=== PATIENT | female | born 1970 | race Caucasian/White ===

== ENCOUNTER 2017-06-30 05:47 | Inpatient (IN) | payer OTHER, MEDICARE ==
[~2017-06-30] VITALS: Ht 149.9 cm; Wt 78.6 kg
[2017-06-30] VITALS (32 sets, daily range): BP systolic 87–148; BP diastolic 54–94; PULSE 49–88; RESP 0–24; Ht 149.9 cm; Wt 78.6 kg
[~2017-06-30 05:47] MED LIST: IBUP100T6
[2017-06-30 06:46] LABS: BASOPHILS % 0.4 % (0.0-2.0); EOSINOPHILS # 0.1 10^3/ul (0.0-0.5); EOSINOPHILS % 1.6 % (0.0-7.0); HEMATOCRIT 41.8 % (37.0-47.0); HEMOGLOBIN 14.4 g/dl (12.0-16.0); LYMPHOCYTES # 2.2 10^3/ul (0.8-2.9); LYMPHOCYTES % 32.2 % (15.0-51.0); MEAN CORPUSCULAR HEMOGLOBIN 32.7 pg (29.0-33.0); MEAN CORPUSCULAR HGB CONC 34.4 g/dl (32.0-37.0); MEAN PLATELET VOLUME 9.3 fl (7.4-10.4); MONOCYTE # 0.6 10^3/ul (0.3-0.9); MONOCYTES % 8.2 % (0.0-11.0); NEUTROPHIL # 3.9 10^3/ul (1.6-7.5); NEUTROPHILS % 57.5 % (39.0-77.0); PLATELET COUNT 287 10^3/UL (140-415); RED CELL DISTRIBUTION WIDTH 13.1 % (11.5-14.5); WHITE BLOOD COUNT 6.8 10^3/ul (4.8-10.8)
[2017-06-30] MEDS ORDERED: GELATIN SIZE 100 SPONGE ONE (06:49)
[2017-06-30] MEDS ORDERED: THROMBIN 5000 UNIT VIAL ONE (06:50)
[2017-06-30] MEDS ORDERED: POLYMYXIN/BACITRACIN 1L IRRIG ONE (06:50)
[2017-06-30 07:00] LABS: INR 0.96; PROTIME 12.8 Sec (12.2-14.2)
[2017-06-30 07:02] LABS: PARTIAL THROMBOPLASTIN TIME 29.3 Sec (25.0-35.0)
[2017-06-30 07:05] LABS: ALBUMIN 3.9 g/dl (3.3-4.9); ALBUMIN/GLOBULIN RATIO 0.95; BILIRUBIN,INDIRECT 0.5 mg/dl (0-1.1); BILIRUBIN,TOTAL 0.5 mg/dl (0.2-1.3)
--- NOTE | 2017-06-30 07:12 | RADRPT ---
PROCEDURE: XR Chest. CLINICAL INDICATION: Preoperative TECHNIQUE: Single frontal view of the chest was obtained COMPARISON: None FINDINGS: The heart and mediastinum are within normal limits. The lungs are clear. There is no pleural effusion or pneumothorax. RPTAT: AA IMPRESSION: No acute disease. .Cristobal Castellanos MD, Date Time Electronically viewed and signed by .Cristobal Castellanos MD, on 06/30/2017 07:10 .S/
[2017-06-30 07:18] LABS: CALCIUM 8.6 mg/dl (8.4-10.2); CREATININE 0.58 mg/dl (0.44-1.00); POTASSIUM 3.5 mmol/L (3.5-5.1)
[2017-06-30] MEDS ORDERED: CEFAZOLIN 1 GM INJ ONE (07:42)
[2017-06-30] MEDS ORDERED: LIDOCAINE 2% (SDV) 5 ML INJ ONE (07:42)
[2017-06-30] MEDS ORDERED: PROPOFOL 20 ML ONE (07:42)
[2017-06-30] MEDS ORDERED: ROCURONIUM 50 MG INJ ONE (07:42)
[2017-06-30] MEDS ORDERED: FENTAnyl 50 MCG/ML VIAL ONE (07:45)
[2017-06-30] MEDS ORDERED: MIDAZOLAM 1 MG/ML 2 ML INJ ONE (07:51)
--- NOTE | 2017-06-30 07:59 | HPN ---
Date/Time of Note Date/Time of Note DATE: 06/30/17 TIME: 07:55 Interval H&P Admission Note Pt. seen H&P reviewed: No system changes Preop Neurosurgery Note Pt seen and examined No significant change noted Extensive d/w patient about all available options including surgery vs no surgery. Overall risk/complications 3-5% overall thoroughly discussed. All questions answered and no guarantees given. Dispo: ICU post op ANDRA MORENO MD Jun 30, 2017 07:59
[2017-06-30] MEDS ORDERED: EPHEDrine SULFATE 50 MG/5 ML SYG IV PRN (08:00)
[2017-06-30] MEDS ORDERED: METOCLOPRAMIDE 10 MG INJ IV PRN (08:00)
[2017-06-30] MEDS ORDERED: FENTAnyl 50 MCG/ML VIAL IV PRN ×3 (08:00)
[2017-06-30] MEDS ORDERED: LABETALOL HCL 20MG INJ IV PRN (08:00)
[2017-06-30] MEDS ORDERED: KETOROLAC 30 MG INJ IV PRN (08:00)
[2017-06-30] MEDS ORDERED: MEPERIDINE 25 MG INJ IV PRN (08:00)
[2017-06-30] MEDS ORDERED: hydrALAzine 20 MG INJ IV PRN (08:00)
[2017-06-30] MEDS ORDERED: DIPHENHYDRAMINE 50 MG INJ IV PRN (08:00)
[2017-06-30] MEDS ORDERED: ONDANSETRON 4 MG INJ IV PRN ×2 (08:00→12:00)
[2017-06-30] MEDS ORDERED: HYDROmorphONE (0.2 MG/ML) 10ML SYG IV PRN ×2 (08:00)
[2017-06-30] MEDS ORDERED: POLYMYXIN/BACITRACIN 1L IRRIG IRR ONE (08:29)
[2017-06-30] MEDS ORDERED: DEXAMETHASONE 4 MG/ML 1 ML INJ ONE (08:47)
[2017-06-30] MEDS ORDERED: ONDANSETRON 4 MG INJ ONE (08:48)
[2017-06-30] MEDS ORDERED: SUGAMMADEX SODIUM 200 MG/2 ML VIAL IV ONE (09:08)
--- NOTE | 2017-06-30 09:18 | OPPN ---
Date/Time of Note Date/Time of Note DATE: 06/30/17 TIME: 09:16 Operative Report Preoperative Diagnosis Pseudomeningocele Postoperative Diagnosis same Operation/Procedure Performed L4-S1 right Pseudomeningocele repair Surgeon see signature line equal opportunity assistant RENETTA Mathews-BC, KETTLE GIRL Anesthesia: general Estimated blood loss: 10 - 50 ml's Transfusion Required none Specimen Wound Culture Aerobic / anaerobic Grafts/Implants none Complications none ANDRA MORENO MD Jun 30, 2017 09:18
[2017-06-30] MEDS ORDERED: NALOXONE (0.4 MG/ML) INJ IV PRN ×3 (09:30→12:00)
[2017-06-30] MEDS ORDERED: NACL 0.9% 3 ML SYG IV SCH (09:30)
[2017-06-30] MEDS ORDERED: HYDROCODONE/APAP (10/325) TAB PO PRN (09:30)
[2017-06-30] MEDS: HYDROmorphONE (0.2 MG/ML) 10ML SYG IV PRN ×2 (09:34→09:44)
[2017-06-30] MEDS ORDERED: CEFAZOLIN 1 GM/50 ML (PMX) 50 ML IVPB SCH (10:00)
[2017-06-30 10:40] LABS: ADD UMIC YES; UR ASCORBIC ACID NEGATIVE (NEGATIVE); UR BACTERIA FEW /HPF (NONE SEEN); UR BILIRUBIN (Dip) NEGATIVE (NEGATIVE); UR BLOOD (Dip) 2+ mg/dL (NEGATIVE); UR CLARITY CLEAR (CLEAR); UR COLOR YELLOW (YELLOW); UR GLUCOSE (Dip) NEGATIVE (NEGATIVE); UR KETONES (Dip) NEGATIVE (NEGATIVE); UR LEUKOCYTE ESTERASE (Dip) NEGATIVE Leu/ul (NEGATIVE); UR NITRITE (Dip) NEGATIVE (NEGATIVE); UR RBC 13 /HPF (0-5); UR SPECIFIC GRAVITY (Dip) 1.017 (1.003-1.030); UR SQUAMOUS EPITHELIAL CELL FEW /HPF (FEW); UR TOTAL PROTEIN (Dip) NEGATIVE (NEGATIVE); UR UROBILINOGEN (Dip) NEGATIVE (NEGATIVE)
[2017-06-30] MEDS ORDERED: HYDROmorphONE 0.2 MG/ML PCA IV SCH (11:30)
[2017-06-30] MEDS ORDERED: HYDROmorphONE 0.2 MG/ML PCA ONE (11:30)
[2017-06-30] MEDS: HYDROmorphONE 0.2 MG/ML PCA IV SCH ×2 (11:45→18:37)
[2017-06-30] MEDS ORDERED: ZOLPIDEM 5 MG TAB PO PRN (12:00)
[2017-06-30] MEDS ORDERED: HYDROmorphONE 0.5 MG/0.5 ML SYG IV PRN (12:00)
[2017-06-30] MEDS: NS + KCL 20 MEQ 1,000 ML IV SCH ×2 (12:25→22:33)
[2017-06-30] MEDS: CEFAZOLIN 1 GM/50 ML (PMX) 50 ML IVPB SCH ×2 (13:58→18:46)
--- NOTE | 2017-06-30 15:24 | HP ---
DATE OF ADMISSION: 06/30/2017 HISTORY OF PRESENT ILLNESS: The patient is a 46-year-old female who was evaluated by Dr. Kohler in s urgical consultation for pseudomeningocele. Patient with complaints of increasing back pain and hea dache. The patient was admitted and underwent L4-S1 right pseudomeningocele repair. Postoperativel y, the patient experienced moderate pain and patient is admitted to the intensive care unit for furt her management. The patient denies any chest pain, denies any shortness of breath. Complains of mi ld headache, back pain and itching. Denies fever or chills. PAST MEDICAL HISTORY: Positive for depression. PAST SURGICAL HISTORY: Status post lumbar surgeries x2 in the past, right foot surgery and left hip surgery. FAMILY HISTORY: Noncontributory. SOCIAL HISTORY: Patient lives at home with her family. The patient denies any tobacco use, denies any alcohol use, denies any illicit drug use. ALLERGIES: NO KNOWN ALLERGIES. HOME MEDICATIONS: Include Citalopram and ibuprofen. REVIEW OF SYSTEMS: A 12-point review of systems is negative unless what mentioned in the HPI. PHYSICAL ASSESSMENT: GENERAL: Well-developed, well-nourished female and currently is awake, alert. VITAL SIGNS: Temperature 98.2, pulse is 72, blood pressure 102/62, respiratory rate 17, oxygen satu ration 99% on 2 liters nasal cannula. HEENT: Head is atraumatic, normocephalic. Pupils equal, round, reactive to light and accommodation . Oral mucosa is pink and moist. NECK: Supple, no cervical lymphadenopathy, no thyromegaly. CHEST: Lungs clear bilaterally. No rhonchi, wheezes, rales noted. CARDIOVASCULAR: Normal S1, S2. No murmurs, gallops or rubs noted. ABDOMEN: Protuberant, soft, nondistended, nontender. Bowel sounds present. Lower back status post surgery with a dry, clean, intact dressing and a surgical drain. EXTREMITIES: No edema, clubbing, cyanosis. Pulses equal bilaterally 2+. SKIN: There is no rash or petechiae noted. NEUROLOGIC: Patient is awake, alert and oriented x4, moves all extremities. LABORATORY DATA: Today CBC: White blood cells 6.8, hemoglobin 14.4, hematocrit 41.8, platelets 287 . Chemistry: Sodium is 142, potassium 3.5, chloride 108, carbon dioxide 26, anion gap 12, BUN 14, creatinine 0.68, glucose 94, AST 48, ALT 77, alkaline is 105. PT is 12.8, INR is 0.96, a PTT is 29. 3. IMAGING: Chest x-ray with no acute disease. ASSESSMENT AND PLAN: 1. 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 Continue ICU monitoring wit h neuro checks. The patient has to be on complete bed rest for 48 hours. Continue postoperative an tibiotics and IV fluids. Patient is given Dilaudid RN UROLOGY p.r.n. for pain and Zofran p.r.n. for nausea . Continue Benadryl p.r.n. for itching. Sequential compression device for deep venous thrombosis p rophylaxis. Continue to follow up surgical recommendations. Further recommendations based on clini mario course. Plan of care discussed with Dr. Tabares. Dictated By: LACY KHAN VICE PRESIDENT RESEARCH for CYN TABARES MD SR/NTS Conf#: [id number] DID#: [id number]
[2017-06-30] MEDS: DIPHENHYDRAMINE 50 MG INJ IV PRN (21:34)
[2017-06-30] MEDS: KETOROLAC 30 MG INJ IV PRN (21:34)
[2017-07-01] VITALS (23 sets, daily range): BP systolic 86–129; BP diastolic 55–89; PULSE 46–65; RESP 10–21
[2017-07-01] MEDS: CEFAZOLIN 1 GM/50 ML (PMX) 50 ML IVPB SCH ×2 (00:22→06:24)
[2017-07-01] MEDS: NS + KCL 20 MEQ 1,000 ML IV SCH ×3 (05:30→20:07)
[2017-07-01 06:10] LABS: BASOPHILS % 0.2 % (0.0-2.0); HEMATOCRIT 37.5 % (37.0-47.0); HEMOGLOBIN 12.3 g/dl (12.0-16.0); LYMPHOCYTES # 1.4 10^3/ul (0.8-2.9); LYMPHOCYTES % 13.1 % (15.0-51.0); MEAN CORPUSCULAR HEMOGLOBIN 32.5 pg (29.0-33.0); MEAN CORPUSCULAR HGB CONC 32.8 g/dl (32.0-37.0); MEAN CORPUSCULAR VOLUME 98.9 fl (82.0-101.0); MEAN PLATELET VOLUME 9.3 fl (7.4-10.4); MONOCYTE # 0.6 10^3/ul (0.3-0.9); MONOCYTES % 5.7 % (0.0-11.0); NEUTROPHIL # 8.8 10^3/ul (1.6-7.5); NEUTROPHILS % 80.7 % (39.0-77.0); PLATELET COUNT 255 10^3/UL (140-415); RED BLOOD COUNT 3.79 10^6/ul (4.20-5.40); RED CELL DISTRIBUTION WIDTH 13.3 % (11.5-14.5); WHITE BLOOD COUNT 10.9 10^3/ul (4.8-10.8)
[2017-07-01] MEDS: KETOROLAC 30 MG INJ IV PRN ×2 (06:27→17:47)
[2017-07-01] MEDS: DIPHENHYDRAMINE 50 MG INJ IV PRN (06:28)
[2017-07-01 06:52] LABS: CALCIUM 7.6 mg/dl (8.4-10.2); CREATININE 0.52 mg/dl (0.44-1.00); POTASSIUM 3.7 mmol/L (3.5-5.1)
[2017-07-01] MEDS: ACETAMINOPHEN 1000MG/100ML IV 100 ML IVPB PRN ×2 (10:51→18:36)
--- NOTE | 2017-07-01 11:20 | PN ---
Date/Time of Note Date/Time of Note DATE: 07/01/17 TIME: 11:19 Assessment/Plan VTE Prophylaxis VTE Prophylaxis Intervention: SCD's Lines/Catheters IV Catheter Type (from Nrs): Peripheral IV Urinary Cath still in place: Yes Reason Cath still needed: other (indicate) (continue bedrest post op 48-72 hours) Assessment/Plan Assessment/Plan s/p Meningocele repair . POD #1 mild PINO Surgical site: CDI plan okay to downgrade bedrest x 48-72 hours scds IS x 10 Subjective 24 Hr Interval Summary Subjective hx not possible: other (mild pino) Exam/Review of Systems Vital Signs Vitals Vital Signs Date Time Temp Pulse Resp B/P Pulse Ox O2 Delivery O2 Flow Rate FiO2 07/01/17 09:00 62 18 97/62 99 Nasal Cannula 2.0 07/01/17 08:00 98.2 Intake and Output 06/30/17 06/30/17 07/01/17 15:00 23:00 07:00 Intake Total 1400 ml 580 ml 800 ml Output Total 255 ml 185 ml 2140 ml Balance 1145 ml 395 ml -1340 ml Exam Neurological: other (ms: AAOX4 CN: PERRL M: 5/5 strength Surgical site : CDI approximately 75 jyothi output) Results Result Diagram: 07/01/17 0555 07/01/17 0555 Results 24 hrs Laboratory Tests Test 07/01/17 05:54 07/01/17 05:55 Lab Scanned Report LAB White Blood Count 10.9 #H Red Blood Count 3.79 L Hemoglobin 12.3 Hematocrit 37.5 Mean Corpuscular Volume 98.9 Mean Corpuscular Hemoglobin 32.5 Mean Corpuscular Hemoglobin Concent 32.8 Red Cell Distribution Width 13.3 Platelet Count 255 Mean Platelet Volume 9.3 Neutrophils % 80.7 H Lymphocytes % 13.1 L Monocytes % 5.7 Eosinophils % 0.0 Basophils % 0.2 Nucleated Red Blood Cells % 0.0 Neutrophils # 8.8 H Lymphocytes # 1.4 Monocytes # 0.6 Eosinophils # 0.0 Basophils # 0.0 Nucleated Red Blood Cells # 0.0 Sodium Level 140 Potassium Level 3.7 Chloride Level 105 Carbon Dioxide Level 26 Anion Gap 13 Blood Urea Nitrogen 9 Creatinine 0.52 Glucose Level 103 Calcium Level 7.6 L Medications Medications Current Medications Naloxone HCl 0.2 mg 0.2 mg Q2M PRN IV RR 8 BREATHS/MIN OR LESS; Start at 09:30 Potassium Chloride/Sodium Chloride (NS-KCl 20 Meq) 1,000 ml @ 100 mls/hr Q10H IV Last administered on 06/30/17 22:33; Admin Dose 100 MLS/HR; Start at 09:30 Hydromorphone HCl (Dilaudid) 0.5 mg Q4H PRN IV PAIN; Start 06/30/17 at 09:30 Naloxone HCl (Narcan) 0.2 mg PRN PRN IV DECREASED REPIRATORY RATE; Start 06/30 at 12:00 Hydromorphone HCl (Dilaudid DIRECTOR ERP) Q4PCA IV Last administered on 06/30/17 18: 37; Admin Dose 6 MG; Start 06/30/17 at 12:00; Stop 07/03/17 at 06:00 Acetaminophen/ Hydrocodone Bitart ([place] (5/325)) 1 tab Q4H PRN PO PAIN LEVEL 1 -5; Start 06/30/17 at 12:00; Status Future Hold Acetaminophen/ Hydrocodone Bitart ([place] (5/325)) 2 tab Q4H PRN PO PAIN LEVEL 6 -10; Start 06/30/17 at 12:00; Status Future Hold Hydromorphone HCl (Dilaudid) 0.2 mg Q4H PRN IV PAIN LEVEL 1-5; Start 06/30/17 at 12:00 Hydromorphone HCl (Dilaudid) 0.4 mg Q4H PRN IV PAIN LEVEL 6-10; Start at 12:00 Ketorolac Tromethamine (Toradol) 30 mg Q6H PRN IV PAIN UNRELIEVED BY IV NARCOTIC Last administered on 07/01/17 06:27; Admin Dose 30 MG; Start at 12:00; Stop 07/03/17 at 11:59 Ondansetron HCl (Zofran Inj) 4 mg Q6H PRN IV NAUSEA AND/OR VOMITING; Start at 12:00 Diphenhydramine HCl (Benadryl) 25 mg Q6H PRN IV ITCHING Last administered on 06:28; Admin Dose 25 MG; Start 06/30/17 at 12:00 Miscellaneous Information 1. Discontinue DIRECTOR ERP... DIRECTOR ERP IV ; Start 06/30/17 at 12: 00 Miscellaneous Information 1. Discontinue DIRECTOR ERP... DIRECTOR ERP IV ; Start 06/30/17 at 12: 00 Acetaminophen (Ofirmev 1000mg/ 100ml Iv) 100 ml @ 400 mls/hr Q6H PRN IVPB HEADACHE Last administered on 07/01/17t 10:51; Admin Dose 400 MLS/HR; Start at 11:00 ANDRA MORENO MD Jul 01, 2017 11:20
--- NOTE | 2017-07-01 13:20 | OPPN ---
Date/Time of Note Date/Time of Note DATE: 07/01/17 TIME: 13:19 Operative Report Preoperative Diagnosis Cervical Myelopathy Postoperative Diagnosis same Operation/Procedure Performed ACDF C5-7 Surgeon see signature line assistant media buyer RIA Mathews, GENAROP-BC Anesthesia: general Estimated blood loss: 10 - 50 ml's Transfusion Required none Specimen C5-6 disc C6-7 disc Grafts/Implants none Complications none ANDRA MORENO MD Jul 01, 2017 13:20
--- NOTE | 2017-07-01 15:41 | PN ---
Date/Time of Note Date/Time of Note DATE: 07/01/17 TIME: 15:37 Assessment/Plan VTE Prophylaxis VTE Prophylaxis Intervention: SCD's Lines/Catheters IV Catheter Type (from Nrs): Peripheral IV Urinary Cath still in place: Yes Reason Cath still needed: urinary retention Assessment/Plan Chief Complaint/Hosp Course Patient complains of mild headache, denies any nausea vomiting, blood pressure is on the low side. 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 Continue ICU monitoring with neuro checks. Continue complete bed rest for another 24 hours. Continue postoperative antibiotics and IV fluids. Continue Dilaudid FIELD COIL WINDER p.r.n. for pain and Zofran p.r.n. for nausea. Further recommendations based on clinical course. Plan of care discussed with Dr. Tabares. Exam/Review of Systems Vital Signs Vitals Vital Signs Date Time Temp Pulse Resp B/P Pulse Ox O2 Delivery O2 Flow Rate FiO2 07/01/17 12:00 61 07/01/17 09:00 18 97/62 99 Nasal Cannula 2.0 07/01/17 08:00 98.2 Intake and Output 06/30/17 06/30/17 07/01/17 15:00 23:00 07:00 Intake Total 1400 ml 580 ml 800 ml Output Total 255 ml 185 ml 2140 ml Balance 1145 ml 395 ml -1340 ml Exam Constitutional: alert, oriented Neck: supple Respiratory: normal air movement Cardiovascular: nl pulses Gastrointestinal: non-tender, soft Musculoskeletal: other (Lower back status post surgery with a dry, clean, intact dressing and a surgical drain.) Extremities: normal pulses Results Result Diagram: 07/01/17 0555 07/01/17 0555 Results 24 hrs Laboratory Tests Test 07/01/17 05:54 07/01/17 05:55 Lab Scanned Report LAB White Blood Count 10.9 #H Red Blood Count 3.79 L Hemoglobin 12.3 Hematocrit 37.5 Mean Corpuscular Volume 98.9 Mean Corpuscular Hemoglobin 32.5 Mean Corpuscular Hemoglobin Concent 32.8 Red Cell Distribution Width 13.3 Platelet Count 255 Mean Platelet Volume 9.3 Neutrophils % 80.7 H Lymphocytes % 13.1 L Monocytes % 5.7 Eosinophils % 0.0 Basophils % 0.2 Nucleated Red Blood Cells % 0.0 Neutrophils # 8.8 H Lymphocytes # 1.4 Monocytes # 0.6 Eosinophils # 0.0 Basophils # 0.0 Nucleated Red Blood Cells # 0.0 Sodium Level 140 Potassium Level 3.7 Chloride Level 105 Carbon Dioxide Level 26 Anion Gap 13 Blood Urea Nitrogen 9 Creatinine 0.52 Glucose Level 103 Calcium Level 7.6 L Medications Medications Current Medications Naloxone HCl 0.2 mg 0.2 mg Q2M PRN IV RR 8 BREATHS/MIN OR LESS; Start at 09:30 Potassium Chloride/Sodium Chloride (NS-KCl 20 Meq) 1,000 ml @ 100 mls/hr Q10H IV Last administered on 06/30/17 22:33; Admin Dose 100 MLS/HR; Start at 09:30 Hydromorphone HCl (Dilaudid) 0.5 mg Q4H PRN IV PAIN; Start 06/30/17 at 09:30 Naloxone HCl (Narcan) 0.2 mg PRN PRN IV DECREASED REPIRATORY RATE; Start 06/30 at 12:00 Hydromorphone HCl (Dilaudid FIELD COIL WINDER) Q4PCA IV Last administered on 06/30/17 18: 37; Admin Dose 6 MG; Start 06/30/17 at 12:00; Stop 07/03/17 at 06:00 Acetaminophen/ Hydrocodone Bitart ([place] (5/325)) 1 tab Q4H PRN PO PAIN LEVEL 1 -5; Start 06/30/17 at 12:00; Status Future Hold Acetaminophen/ Hydrocodone Bitart ([place] (5/325)) 2 tab Q4H PRN PO PAIN LEVEL 6 -10; Start 06/30/17 at 12:00; Status Future Hold Hydromorphone HCl (Dilaudid) 0.2 mg Q4H PRN IV PAIN LEVEL 1-5; Start 06/30/17 at 12:00 Hydromorphone HCl (Dilaudid) 0.4 mg Q4H PRN IV PAIN LEVEL 6-10; Start at 12:00 Ketorolac Tromethamine (Toradol) 30 mg Q6H PRN IV PAIN UNRELIEVED BY IV NARCOTIC Last administered on 07/01/17 06:27; Admin Dose 30 MG; Start at 12:00; Stop 07/03/17 at 11:59 Ondansetron HCl (Zofran Inj) 4 mg Q6H PRN IV NAUSEA AND/OR VOMITING; Start at 12:00 Diphenhydramine HCl (Benadryl) 25 mg Q6H PRN IV ITCHING Last administered on 06:28; Admin Dose 25 MG; Start 06/30/17 at 12:00 Miscellaneous Information 1. Discontinue FIELD COIL WINDER... FIELD COIL WINDER IV ; Start 06/30/17 at 12: 00 Miscellaneous Information 1. Discontinue FIELD COIL WINDER... FIELD COIL WINDER IV ; Start 06/30/17 at 12: 00 Acetaminophen (Ofirmev 1000mg/ 100ml Iv) 100 ml @ 400 mls/hr Q6H PRN IVPB HEADACHE Last administered on 07/01/17 10:51; Admin Dose 400 MLS/HR; Start at 11:00 LACY KHAN Jul 01, 2017 15:41
[2017-07-01] MEDS: HYDROmorphONE 0.2 MG/ML PCA IV SCH (18:30)
[2017-07-02] VITALS (20 sets, daily range): BP systolic 101–160; BP diastolic 53–93; PULSE 44–66; RESP 10–19
[2017-07-02] MEDS: NS + KCL 20 MEQ 1,000 ML IV SCH ×2 (05:48→16:50)
[2017-07-02 06:12] LABS: EOSINOPHILS # 0.1 10^3/ul (0.0-0.5); EOSINOPHILS % 1.7 % (0.0-7.0); HEMOGLOBIN 12.8 g/dl (12.0-16.0); MEAN CORPUSCULAR HEMOGLOBIN 31.8 pg (29.0-33.0); RED BLOOD COUNT 4.03 10^6/ul (4.20-5.40)
[2017-07-02 06:18] LABS: BASOPHILS % 0.3 % (0.0-2.0); HEMATOCRIT 40.2 % (37.0-47.0); LYMPHOCYTES # 2.3 10^3/ul (0.8-2.9); LYMPHOCYTES % 35.4 % (15.0-51.0); MEAN CORPUSCULAR HGB CONC 31.8 g/dl (32.0-37.0); MEAN CORPUSCULAR VOLUME 99.8 fl (82.0-101.0); MEAN PLATELET VOLUME 9.8 fl (7.4-10.4); MONOCYTE # 0.5 10^3/ul (0.3-0.9); NEUTROPHIL # 3.7 10^3/ul (1.6-7.5); NEUTROPHILS % 55.4 % (39.0-77.0); PLATELET COUNT 242 10^3/UL (140-415); RED CELL DISTRIBUTION WIDTH 13.7 % (11.5-14.5); WHITE BLOOD COUNT 6.6 10^3/ul (4.8-10.8)
[2017-07-02 07:00] LABS: CALCIUM 7.5 mg/dl (8.4-10.2); CREATININE 0.58 mg/dl (0.44-1.00); POTASSIUM 3.9 mmol/L (3.5-5.1)
[2017-07-02] MEDS: KETOROLAC 30 MG INJ IV PRN ×2 (08:26→16:43)
[2017-07-02] MEDS: ACETAMINOPHEN 1000MG/100ML IV 100 ML IVPB PRN ×2 (10:07→17:20)
--- NOTE | 2017-07-02 12:14 | PN ---
Date/Time of Note Date/Time of Note DATE: 07/02/17 TIME: 12:08 Assessment/Plan VTE Prophylaxis VTE Prophylaxis Intervention: other Lines/Catheters IV Catheter Type (from Nrs): Peripheral IV Urinary Cath still in place: Yes Assessment/Plan Assessment/Plan - Pseudomeningocele - status post L4-S1 right pseudomeningocele repair. - per neuro sx - Continue ICU monitoring with neuro checks. - ok to transfer to tele per neuro sx Further recommendations based on clinical course. Plan of care discussed with Dr. Tabares. Subjective 24 Hr Interval Summary Free Text/Dictation Patient complains of mild headache, denies any chest pain, shortness of breath, nausea vomiting, pulse 62 - remains on supplement oxygen via [place] - Dw staff- ok to transfer tele per neurosx Constitutional: requiring O2 Respiratory: no complaints Cardiovascular: no complaints Gastrointestinal: no complaints Genitourinary: no complaints Musculoskeletal: no complaints Neurologic: headache Exam/Review of Systems Vital Signs Vitals Vital Signs Date Time Temp Pulse Resp B/P Pulse Ox O2 Delivery O2 Flow Rate FiO2 07/02/17 10:00 62 19 120/72 98 Nasal Cannula 2.0 07/02/17 08:00 98.2 07/02/17 05:33 27 Intake and Output 07/01/17 07/01/17 07/02/17 15:00 23:00 07:00 Intake Total 1580 ml 1090 ml 720 ml Output Total 1680 ml 1080 ml 790 ml Balance -100 ml 10 ml -70 ml Exam Constitutional: alert, well developed Respiratory: clear to auscultation, diminished breath sounds Gastrointestinal: non-tender, soft Musculoskeletal: nl extremities to inspection Extremities: normal pulses Neurological: nl mental status, nl speech Results Result Diagram: 07/02/1715 07/02/1715 Results 24 hrs Laboratory Tests Test 07/02/17 05:15 White Blood Count 6.6 # Red Blood Count 4.03 L Hemoglobin 12.8 Hematocrit 40.2 Mean Corpuscular Volume 99.8 Mean Corpuscular Hemoglobin 31.8 Mean Corpuscular Hemoglobin Concent 31.8 L Red Cell Distribution Width 13.7 Platelet Count 242 Mean Platelet Volume 9.8 Neutrophils % 55.4 Lymphocytes % 35.4 Monocytes % 7.0 Eosinophils % 1.7 Basophils % 0.3 Nucleated Red Blood Cells % 0.0 Neutrophils # 3.7 Lymphocytes # 2.3 Monocytes # 0.5 Eosinophils # 0.1 Basophils # 0.0 Nucleated Red Blood Cells # 0.0 Sodium Level 144 Potassium Level 3.9 Chloride Level 110 Carbon Dioxide Level 27 Anion Gap 11 Blood Urea Nitrogen 8 Creatinine 0.58 Glucose Level 78 Calcium Level 7.5 L Medications Medications Current Medications Naloxone HCl 0.2 mg 0.2 mg Q2M PRN IV RR 8 BREATHS/MIN OR LESS; Start at 09:30 Potassium Chloride/Sodium Chloride (NS-KCl 20 Meq) 1,000 ml @ 100 mls/hr Q10H IV Last administered on 07/02/17 05:48; Admin Dose 100 MLS/HR; Start at 09:30 Hydromorphone HCl (Dilaudid) 0.5 mg Q4H PRN IV PAIN; Start 06/30/17 at 09:30 Naloxone HCl (Narcan) 0.2 mg PRN PRN IV DECREASED REPIRATORY RATE; Start 06/30 at 12:00 Acetaminophen/ Hydrocodone Bitart ([place] (5/325)) 1 tab Q4H PRN PO PAIN LEVEL 1 -5; Start 06/30/17 at 12:00; Status Future hold Acetaminophen/ Hydrocodone Bitart ([place] (5/325)) 2 tab Q4H PRN PO PAIN LEVEL 6 -10; Start 06/30/17 at 12:00; Status Future hold Hydromorphone HCl (Dilaudid) 0.2 mg Q4H PRN IV PAIN LEVEL 1-5; Start 06/30/17 at 12:00 Hydromorphone HCl (Dilaudid) 0.4 mg Q4H PRN IV PAIN LEVEL 6-10; Start at 12:00 Ketorolac Tromethamine (Toradol) 30 mg Q6H PRN IV PAIN UNRELIEVED BY IV NARCOTIC Last administered on 07/02/17 08:26; Admin Dose 30 MG; Start at 12:00; Stop 07/03/17 at 11:59 Ondansetron HCl (Zofran Inj) 4 mg Q6H PRN IV NAUSEA AND/OR VOMITING Last administered on 07/01/17 21:07; Admin Dose 4 MG; Start 10/17/17 at 12:00 Diphenhydramine HCl (Benadryl) 25 mg Q6H PRN IV ITCHING Last administered on 06:28; Admin Dose 25 MG; Start 06/30/17 at 12:00 Miscellaneous Information 1. Discontinue SUPERVISOR BRIDGES AND BUILDINGS... SUPERVISOR BRIDGES AND BUILDINGS IV ; Start 06/30/17 at 12: 00 Miscellaneous Information 1. Discontinue SUPERVISOR BRIDGES AND BUILDINGS... SUPERVISOR BRIDGES AND BUILDINGS IV ; Start 06/30/17 at 12: 00 Acetaminophen (Ofirmev 1000mg/ 100ml Iv) 100 ml @ 400 mls/hr Q6H PRN IVPB HEADACHE Last administered on 07/02/17 10:07; Admin Dose 400 MLS/HR; Start at 11:00 Magnesium Hydroxide (Milk Of Mag) 30 ml DAILY PRN PO CONSTIPATION; Start 07/02 at 11:00 ISABELLA BRUSH Jul 02, 2017 12:14
[2017-07-02] MEDS: MAGNESIUM HYDROXIDE 30ML CUP PO PRN (15:02)
--- NOTE | 2017-07-02 17:00 | PN ---
Date/Time of Note Date/Time of Note DATE: 07/02/17 TIME: 16:59 Assessment/Plan VTE Prophylaxis VTE Prophylaxis Intervention: SCD's Lines/Catheters IV Catheter Type (from Nrs): Peripheral IV Urinary Cath still in place: Yes Reason Cath still needed: other (indicate) (bedrest x 72 hours ) Assessment/Plan Assessment/Plan s/p Meningocele repair . POD #2 less drainage from JYOTHI , approximately 10-15cc since this am. mild PINO n/v plan cont IVF until n/v improves prn zofran hold pt/ot for now cont jyothi drain scds is x 10 family updated Subjective 24 Hr Interval Summary Subjective hx not possible: other (S: s/p Meningocele repair . POD #2 ) Exam/Review of Systems Vital Signs Vitals Vital Signs Date Time Temp Pulse Resp B/P Pulse Ox O2 Delivery O2 Flow Rate FiO2 07/02/17 16:47 98.7 61 18 109/53 91 07/02/17 14:00 Room Air 07/02/17 11:00 2.0 07/02/17 05:33 27 Intake and Output 07/01/17 07/01/17 07/02/17 15:00 23:00 07:00 Intake Total 1580 ml 1090 ml 720 ml Output Total 1680 ml 1080 ml 790 ml Balance -100 ml 10 ml -70 ml Exam vss aaox4 perrl fc x 4 , no focal weakness surgical site: cdi JYOTHI output: approximately 10-15 cc outpt since am. Results Result Diagram: 07/02/17 0515 07/02/17 0515 Results 24 hrs Laboratory Tests Test 07/02/17 05:15 White Blood Count 6.6 # Red Blood Count 4.03 L Hemoglobin 12.8 Hematocrit 40.2 Mean Corpuscular Volume 99.8 Mean Corpuscular Hemoglobin 31.8 Mean Corpuscular Hemoglobin Concent 31.8 L Red Cell Distribution Width 13.7 Platelet Count 242 Mean Platelet Volume 9.8 Neutrophils % 55.4 Lymphocytes % 35.4 Monocytes % 7.0 Eosinophils % 1.7 Basophils % 0.3 Nucleated Red Blood Cells % 0.0 Neutrophils # 3.7 Lymphocytes # 2.3 Monocytes # 0.5 Eosinophils # 0.1 Basophils # 0.0 Nucleated Red Blood Cells # 0.0 Sodium Level 144 Potassium Level 3.9 Chloride Level 110 Carbon Dioxide Level 27 Anion Gap 11 Blood Urea Nitrogen 8 Creatinine 0.58 Glucose Level 78 Calcium Level 7.5 L Medications Medications Current Medications Naloxone HCl 0.2 mg 0.2 mg Q2M PRN IV RR 8 BREATHS/MIN OR LESS; Start at 09:30 Potassium Chloride/Sodium Chloride (NS-KCl 20 Meq) 1,000 ml @ 100 mls/hr Q10H IV Last administered on 07/02/17 05:48; Admin Dose 100 MLS/HR; Start at 09:30 Hydromorphone HCl (Dilaudid) 0.5 mg Q4H PRN IV PAIN; Start 06/30/17 at 09:30 Naloxone HCl (Narcan) 0.2 mg PRN PRN IV DECREASED REPIRATORY RATE; Start 06/30 at 12:00 Acetaminophen/ Hydrocodone Bitart ([place] (5/325)) 1 tab Q4H PRN PO PAIN LEVEL 1 -5; Start 06/30/17 at 12:00; Status Future hold Acetaminophen/ Hydrocodone Bitart ([place] (5/325)) 2 tab Q4H PRN PO PAIN LEVEL 6 -10; Start 06/30/17 at 12:00; Status Future hold Hydromorphone HCl (Dilaudid) 0.2 mg Q4H PRN IV PAIN LEVEL 1-5; Start 06/30/17 at 12:00 Hydromorphone HCl (Dilaudid) 0.4 mg Q4H PRN IV PAIN LEVEL 6-10; Start at 12:00 Ketorolac Tromethamine (Toradol) 30 mg Q6H PRN IV PAIN UNRELIEVED BY IV NARCOTIC Last administered on 07/02/17 08:26; Admin Dose 30 MG; Start at 12:00; Stop 07/03/17 at 11:59 Ondansetron HCl (Zofran Inj) 4 mg Q6H PRN IV NAUSEA AND/OR VOMITING Last administered on 07/01/17 21:07; Admin Dose 4 MG; Start 06/30/17 at 12:00 Diphenhydramine HCl (Benadryl) 25 mg Q6H PRN IV ITCHING Last administered on 06:28; Admin Dose 25 MG; Start 06/30/17 at 12:00 Miscellaneous Information 1. Discontinue ORDER TAKERS SUPERVISOR... ORDER TAKERS SUPERVISOR IV ; Start 06/30/17 at 12: 00 Miscellaneous Information 1. Discontinue ORDER TAKERS SUPERVISOR... ORDER TAKERS SUPERVISOR IV ; Start 06/30/17 at 12: 00 Acetaminophen (Ofirmev 1000mg/ 100ml Iv) 100 ml @ 400 mls/hr Q6H PRN IVPB HEADACHE Last administered on 07/02/17 10:07; Admin Dose 400 MLS/HR; Start at 11:00 Magnesium Hydroxide (Milk Of Mag) 30 ml DAILY PRN PO CONSTIPATION Last administered on 07/02/17 15:02; Admin Dose 30 ML; Start 07/02/17 at 11:00 LINA MÉNDEZ NP Jul 02, 2017 17:00
--- NOTE | 2017-07-02 18:28 | RADRPT ---
Vent Rate: 70 bpm RR Interval: 0 msec IA Interval: 164 msec QRS Duration: 70 msec QT Interval: 428 msec QTC Interval: 462 msec P-R-T [place]: 48 - 10 - 21 degrees Normal sinus rhythm Normal ECG Electronically Signed By: Noel Cha [id number]
[2017-07-02] MEDS: HYDROmorphONE 0.5 MG/0.5 ML SYG IV PRN (23:49)
[2017-07-03] VITALS (14 sets, daily range): BP systolic 87–121; BP diastolic 50–61; PULSE 53–72; RESP 17–20
[2017-07-03] MEDS: NS + KCL 20 MEQ 1,000 ML IV SCH ×2 (04:15→14:28)
[2017-07-03] MEDS: HYDROmorphONE 0.5 MG/0.5 ML SYG IV PRN ×5 (05:16→19:34)
[2017-07-03 06:15] LABS: BASOPHILS % 0.3 % (0.0-2.0); EOSINOPHILS # 0.2 10^3/ul (0.0-0.5); EOSINOPHILS % 2.6 % (0.0-7.0); HEMATOCRIT 43.9 % (37.0-47.0); HEMOGLOBIN 14.1 g/dl (12.0-16.0); LYMPHOCYTES # 2.6 10^3/ul (0.8-2.9); LYMPHOCYTES % 34.5 % (15.0-51.0); MEAN CORPUSCULAR HEMOGLOBIN 31.7 pg (29.0-33.0); MEAN CORPUSCULAR HGB CONC 32.1 g/dl (32.0-37.0); MEAN CORPUSCULAR VOLUME 98.7 fl (82.0-101.0); MEAN PLATELET VOLUME 9.6 fl (7.4-10.4); MONOCYTE # 0.6 10^3/ul (0.3-0.9); MONOCYTES % 8.2 % (0.0-11.0); PLATELET COUNT 263 10^3/UL (140-415); RED BLOOD COUNT 4.45 10^6/ul (4.20-5.40); RED CELL DISTRIBUTION WIDTH 13.8 % (11.5-14.5); WHITE BLOOD COUNT 7.4 10^3/ul (4.8-10.8)
[2017-07-03] MEDS: HYDROCODONE/APAP (5/325) TAB PO PRN ×4 (06:22→20:58)
[2017-07-03 07:12] LABS: CALCIUM 8.1 mg/dl (8.4-10.2); CREATININE 0.55 mg/dl (0.44-1.00)
--- NOTE | 2017-07-03 14:54 | PN ---
Date/Time of Note Date/Time of Note DATE: 07/03/17 TIME: 14:49 Assessment/Plan VTE Prophylaxis VTE Prophylaxis Intervention: SCD's Lines/Catheters IV Catheter Type (from Nrs): Saline Lock Urinary Cath still in place: Yes Reason Cath still needed: urinary retention Assessment/Plan Chief Complaint/Hosp Course No acute events overnight, pain is well controlled, blood pressure is on the low side. 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 Continue ICU monitoring with neuro checks. Continue postoperative antibiotics and IV fluids. Continue [place] and Dilaudid as needed for pain and Zofran p.r.n. for nausea. Further recommendations based on clinical course. Plan of care discussed with Dr. Tabares. Problems: Exam/Review of Systems Vital Signs Vitals Vital Signs Date Time Temp Pulse Resp B/P Pulse Ox O2 Delivery O2 Flow Rate FiO2 07/03/17 12:04 72 07/03/17 11:41 99.2 17 98/54 93 07/02/17 16:00 Nasal Cannula 2.0 07/02/17 05:33 27 Intake and Output 07/02/17 07/02/17 07/03/17 15:00 23:00 07:00 Intake Total 1140 ml 700 ml 250 ml Output Total 300 ml 1012 ml 5 ml Balance 840 ml -312 ml 245 ml Exam Constitutional: alert, oriented Neck: supple Respiratory: normal air movement Cardiovascular: nl pulses Gastrointestinal: non-tender, soft Musculoskeletal: other (Lower back status post surgery with a dry, clean, intact dressing and a surgical drain.) Extremities: normal pulses Results Result Diagram: 07/03/17 0523 07/03/17522 Results 24 hrs Laboratory Tests Test 07/03/17 05:23 White Blood Count 7.4 Red Blood Count 4.45 Hemoglobin 14.1 Hematocrit 43.9 Mean Corpuscular Volume 98.7 Mean Corpuscular Hemoglobin 31.7 Mean Corpuscular Hemoglobin Concent 32.1 Red Cell Distribution Width 13.8 Platelet Count 263 Mean Platelet Volume 9.6 Neutrophils % 54.0 Lymphocytes % 34.5 Monocytes % 8.2 Eosinophils % 2.6 Basophils % 0.3 Nucleated Red Blood Cells % 0.0 Neutrophils # 4.0 Lymphocytes # 2.6 Monocytes # 0.6 Eosinophils # 0.2 Basophils # 0.0 Nucleated Red Blood Cells # 0.0 Sodium Level 144 Potassium Level 4.0 Chloride Level 110 Carbon Dioxide Level 28 Anion Gap 10 Blood Urea Nitrogen 8 Creatinine 0.55 Glucose Level 80 Calcium Level 8.1 L Medications Medications Current Medications Naloxone HCl 0.2 mg 0.2 mg Q2M PRN IV RR 8 BREATHS/MIN OR LESS; Start at 09:30 Potassium Chloride/Sodium Chloride (NS-KCl 20 Meq) 1,000 ml @ 100 mls/hr Q10H IV Last administered on 07/03/17 14:28; Admin Dose 100 MLS/HR; Start at 09:30 Hydromorphone HCl (Dilaudid) 0.5 mg Q4H PRN IV PAIN Last administered on 14:27; Admin Dose 0.5 MG; Start 06/30/17 at 09:30 Naloxone HCl (Narcan) 0.2 mg PRN PRN IV DECREASED REPIRATORY RATE; Start 06/30 at 12:00 Acetaminophen/ Hydrocodone Bitart ([place] (5/325)) 1 tab Q4H PRN PO PAIN LEVEL 1 -5 Last administered on 07/03/17 06:22; Admin Dose 1 TAB; Start 06/30/17 at 12:00; Status Future hold Acetaminophen/ Hydrocodone Bitart ([place] (5/325)) 2 tab Q4H PRN PO PAIN LEVEL 6 -10 Last administered on 07/03/17 11:26; Admin Dose 2 TAB; Start 06/30/17 at 12:00; Status Future hold Hydromorphone HCl (Dilaudid) 0.2 mg Q4H PRN IV PAIN LEVEL 1-5 Last administered on 07/03/17 10:26; Admin Dose 0.2 MG; Start 06/30/17 at 12:00 Hydromorphone HCl (Dilaudid) 0.4 mg Q4H PRN IV PAIN LEVEL 6-10; Start at 12:00 Ondansetron HCl (Zofran Inj) 4 mg Q6H PRN IV NAUSEA AND/OR VOMITING Last administered on 07/01/17 21:07; Admin Dose 4 MG; Start 06/30/17 at 12:00 Diphenhydramine HCl (Benadryl) 25 mg Q6H PRN IV ITCHING Last administered on 06:28; Admin Dose 25 MG; Start 06/30/17 at 12:00 Miscellaneous Information 1. Discontinue TOLL MECHANIC... TOLL MECHANIC IV ; Start 06/30/17 at 12: 00 Miscellaneous Information 1. Discontinue TOLL MECHANIC... TOLL MECHANIC IV ; Start 06/30/17 at 12: 00 Acetaminophen (Ofirmev 1000mg/ 100ml Iv) 100 ml @ 400 mls/hr Q6H PRN IVPB HEADACHE Last administered on 07/02/17 17:20; Admin Dose 400 MLS/HR; Start at 11:00 Magnesium Hydroxide (Milk Of Mag) 30 ml DAILY PRN PO CONSTIPATION Last administered on 07/02/17 15:02; Admin Dose 30 ML; Start 07/02/17 at 11:00 LACY KHAN Jul 03, 2017 14:54
--- NOTE | 2017-07-03 14:57 | PN ---
Date/Time of Note Date/Time of Note DATE: 07/03/17 TIME: 14:54 Assessment/Plan VTE Prophylaxis VTE Prophylaxis Intervention: SCD's Lines/Catheters IV Catheter Type (from Nrs): Saline Lock Central line still needed: No Urinary Cath still in place: Yes Reason Cath still needed: other (indicate) (bedrest) Assessment/Plan Assessment/Plan s/p meningocele repair. very minimal drainage from JYOTHI HAs improving LE strength stable and no numbness/tingling plan cont supportive care pt/ot on HOLD possible DC jyothi drain in am cont bilat SCDs cont bedrest Subjective 24 Hr Interval Summary Subjective hx not possible: pt critical (new symptoms ), other (S: Less drainage from JYOTHI drain ) Exam/Review of Systems Vital Signs Vitals Vital Signs Date Time Temp Pulse Resp B/P Pulse Ox O2 Delivery O2 Flow Rate FiO2 07/03/17 12:04 72 07/03/17 11:41 99.2 17 98/54 93 07/02/17 16:00 Nasal Cannula 2.0 07/02/17 05:33 27 Intake and Output 07/02/17 07/02/17 07/03/17 15:00 23:00 07:00 Intake Total 1140 ml 700 ml 250 ml Output Total 300 ml 1012 ml 5 ml Balance 840 ml -312 ml 245 ml Exam Constitutional: alert, other (mild PINO) Head: normocephalic Neurological: IMPORT COORDINATOR II-XII intact, nl mental status, nl speech, nl strength Results Result Diagram: 07/03/1752207/03/1723 Results 24 hrs Laboratory Tests Test 07/03/17 05:23 White Blood Count 7.4 Red Blood Count 4.45 Hemoglobin 14.1 Hematocrit 43.9 Mean Corpuscular Volume 98.7 Mean Corpuscular Hemoglobin 31.7 Mean Corpuscular Hemoglobin Concent 32.1 Red Cell Distribution Width 13.8 Platelet Count 263 Mean Platelet Volume 9.6 Neutrophils % 54.0 Lymphocytes % 34.5 Monocytes % 8.2 Eosinophils % 2.6 Basophils % 0.3 Nucleated Red Blood Cells % 0.0 Neutrophils # 4.0 Lymphocytes # 2.6 Monocytes # 0.6 Eosinophils # 0.2 Basophils # 0.0 Nucleated Red Blood Cells # 0.0 Sodium Level 144 Potassium Level 4.0 Chloride Level 110 Carbon Dioxide Level 28 Anion Gap 10 Blood Urea Nitrogen 8 Creatinine 0.55 Glucose Level 80 Calcium Level 8.1 L Medications Medications Current Medications Naloxone HCl 0.2 mg 0.2 mg Q2M PRN IV RR 8 BREATHS/MIN OR LESS; Start at 09:30 Potassium Chloride/Sodium Chloride (NS-KCl 20 Meq) 1,000 ml @ 100 mls/hr Q10H IV Last administered on 07/03/17 14:28; Admin Dose 100 MLS/HR; Start at 09:30 Hydromorphone HCl (Dilaudid) 0.5 mg Q4H PRN IV PAIN Last administered on 14:27; Admin Dose 0.5 MG; Start 06/30/17 at 09:30 Naloxone HCl (Narcan) 0.2 mg PRN PRN IV DECREASED REPIRATORY RATE; Start 06/30 at 12:00 Acetaminophen/ Hydrocodone Bitart ([place] (5/325)) 1 tab Q4H PRN PO PAIN LEVEL 1 -5 Last administered on 07/03/17 06:22; Admin Dose 1 TAB; Start 06/30/17 at 12:00; Status Future hold Acetaminophen/ Hydrocodone Bitart ([place] (5/325)) 2 tab Q4H PRN PO PAIN LEVEL 6 -10 Last administered on 07/03/17 11:26; Admin Dose 2 TAB; Start 06/30/17 at 12:00; Status Future hold Hydromorphone HCl (Dilaudid) 0.2 mg Q4H PRN IV PAIN LEVEL 1-5 Last administered on 07/03/17 10:26; Admin Dose 0.2 MG; Start 06/30/17 at 12:00 Hydromorphone HCl (Dilaudid) 0.4 mg Q4H PRN IV PAIN LEVEL 6-10; Start at 12:00 Ondansetron HCl (Zofran Inj) 4 mg Q6H PRN IV NAUSEA AND/OR VOMITING Last administered on 07/01/17 21:07; Admin Dose 4 MG; Start 06/30/17 at 12:00 Diphenhydramine HCl (Benadryl) 25 mg Q6H PRN IV ITCHING Last administered on 06:28; Admin Dose 25 MG; Start 06/30/17 at 12:00 Miscellaneous Information 1. Discontinue ROOM ATTENDANT... ROOM ATTENDANT IV ; Start 06/30/17 at 12: 00 Miscellaneous Information 1. Discontinue ROOM ATTENDANT... ROOM ATTENDANT IV ; Start 06/30/17 at 12: 00 Acetaminophen (Ofirmev 1000mg/ 100ml Iv) 100 ml @ 400 mls/hr Q6H PRN IVPB HEADACHE Last administered on 07/02/17 17:20; Admin Dose 400 MLS/HR; Start at 11:00 Magnesium Hydroxide (Milk Of Mag) 30 ml DAILY PRN PO CONSTIPATION Last administered on 07/02/17 15:02; Admin Dose 30 ML; Start 07/02/17 at 11:00 ANDRA MORENO MD Jul 03, 2017 14:57
[2017-07-04] VITALS (11 sets, daily range): BP systolic 86–115; BP diastolic 53–60; PULSE 50–61; RESP 16–19
[2017-07-04] MEDS: HYDROmorphONE 0.5 MG/0.5 ML SYG IV PRN ×5 (00:21→23:06)
[2017-07-04] MEDS: NS + KCL 20 MEQ 1,000 ML IV SCH ×3 (01:06→23:08)
[2017-07-04] MEDS: HYDROCODONE/APAP (5/325) TAB PO PRN ×4 (02:05→20:14)
[2017-07-04 07:25] LABS: BASOPHILS % 0.5 % (0.0-2.0); EOSINOPHILS # 0.3 10^3/ul (0.0-0.5); EOSINOPHILS % 4.3 % (0.0-7.0); HEMATOCRIT 43.2 % (37.0-47.0); HEMOGLOBIN 14.3 g/dl (12.0-16.0); LYMPHOCYTES # 2.3 10^3/ul (0.8-2.9); LYMPHOCYTES % 31.1 % (15.0-51.0); MEAN CORPUSCULAR HEMOGLOBIN 32.4 pg (29.0-33.0); MEAN CORPUSCULAR HGB CONC 33.1 g/dl (32.0-37.0); MEAN PLATELET VOLUME 9.3 fl (7.4-10.4); MONOCYTE # 0.6 10^3/ul (0.3-0.9); MONOCYTES % 7.4 % (0.0-11.0); NEUTROPHIL # 4.2 10^3/ul (1.6-7.5); NEUTROPHILS % 56.6 % (39.0-77.0); PLATELET COUNT 285 10^3/UL (140-415); RED BLOOD COUNT 4.41 10^6/ul (4.20-5.40); RED CELL DISTRIBUTION WIDTH 13.4 % (11.5-14.5); WHITE BLOOD COUNT 7.5 10^3/ul (4.8-10.8)
[2017-07-04 08:04] LABS: CALCIUM 8.2 mg/dl (8.4-10.2); CREATININE 0.56 mg/dl (0.44-1.00); POTASSIUM 4.2 mmol/L (3.5-5.1)
[2017-07-04] MEDS ORDERED: FLUCONAZOLE 200 MG TAB PO ONE (11:00)
[2017-07-04] MEDS ORDERED: CEFTRIAXONE 1 GM/50 ML (PMX) 50 ML IVPB SCH (11:00)
[2017-07-04] MEDS: CEFTRIAXONE 1 GM/50 ML (PMX) 50 ML IVPB SCH (11:05)
[2017-07-04] MEDS: MAGNESIUM HYDROXIDE 30ML CUP PO PRN (12:32)
[2017-07-04 13:06] LABS: ADD UMIC YES; UR ASCORBIC ACID NEGATIVE (NEGATIVE); UR BILIRUBIN (Dip) NEGATIVE (NEGATIVE); UR BLOOD (Dip) 1+ mg/dL (NEGATIVE); UR BUDDING YEAST FEW /HPF (NONE SEEN); UR CLARITY CLEAR (CLEAR); UR COLOR STRAW (YELLOW); UR GLUCOSE (Dip) NEGATIVE (NEGATIVE); UR KETONES (Dip) NEGATIVE (NEGATIVE); UR LEUKOCYTE ESTERASE (Dip) NEGATIVE Leu/ul (NEGATIVE); UR NITRITE (Dip) NEGATIVE (NEGATIVE); UR RBC 1 /HPF (0-5); UR SPECIFIC GRAVITY (Dip) 1.008 (1.003-1.030); UR TOTAL PROTEIN (Dip) NEGATIVE (NEGATIVE); UR UROBILINOGEN (Dip) NEGATIVE (NEGATIVE)
--- NOTE | 2017-07-04 14:03 | PN ---
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 - per neurosx - Continue [place] and Dilaudid as needed for pain and Zofran p.r.n. for nausea. - Sinus Bradycardia, patient is asymptomatic - cont on tele - will get cardiology consult if patient is symptomatic Further recommendations based on clinical course. Plan of care discussed with Dr. Tabares. Subjective 24 Hr Interval Summary Free Text/Dictation Urine is positive for yeast- got Diflucan 200mg PO X1 today, cont on Rocephin, afebrile, dw staff ENT: no complaints Respiratory: no complaints Cardiovascular: no complaints Gastrointestinal: no complaints Musculoskeletal: back pain Exam/Review of Systems Vital Signs Vitals Vital Signs Date Time Temp Pulse Resp B/P Pulse Ox O2 Delivery O2 Flow Rate FiO2 07/04/17 12:06 61 07/04/17 11:59 98.2 16 96/53 94 07/02/17 16:00 Nasal Cannula 2.0 07/02/17 05:33 27 Intake and Output 07/03/17 07/03/17 07/04/17 15:00 23:00 07:00 Intake Total 1000 ml 760 ml 950 ml Output Total 2200 ml 1255 ml Balance 1000 ml -1440 ml -305 ml Exam Constitutional: alert, well developed Respiratory: diminished breath sounds, normal air movement Cardiovascular: other (s1s2), regular rate and rhythm Gastrointestinal: non-tender, soft Musculoskeletal: nl extremities to inspection Extremities: normal pulses Neurological: nl mental status Results Result Diagram: 07/04/17 0642 07/04/17 0638 Results 24 hrs Laboratory Tests Test 07/04/17 06:38 07/04/17 06:42 07/04/17 11:00 Sodium Level 142 Potassium Level 4.2 Chloride Level 109 Carbon Dioxide Level 27 Anion Gap 10 Blood Urea Nitrogen 8 Creatinine 0.56 Glucose Level 93 Calcium Level 8.2 L White Blood Count 7.5 Red Blood Count 4.41 Hemoglobin 14.3 Hematocrit 43.2 Mean Corpuscular Volume 98.0 Mean Corpuscular Hemoglobin 32.4 Mean Corpuscular Hemoglobin Concent 33.1 Red Cell Distribution Width 13.4 Platelet Count 285 Mean Platelet Volume 9.3 Neutrophils % 56.6 Lymphocytes % 31.1 Monocytes % 7.4 Eosinophils % 4.3 Basophils % 0.5 Nucleated Red Blood Cells % 0.0 Neutrophils # 4.2 Lymphocytes # 2.3 Monocytes # 0.6 Eosinophils # 0.3 Basophils # 0.0 Nucleated Red Blood Cells # 0.0 Urine Color STRAW Urine Clarity CLEAR Urine pH 8.0 Urine Specific [place] 1.008 Urine Ketones NEGATIVE Urine Nitrite NEGATIVE Urine Bilirubin NEGATIVE Urine Urobilinogen NEGATIVE Urine Leukocyte Esterase NEGATIVE Urine Microscopic RBC 1 Urine Microscopic WBC 1 Urine Yeast (Budding) FEW A Urine Hemoglobin 1+ H Urine Glucose NEGATIVE Urine Total Protein NEGATIVE Medications Medications Current Medications Naloxone HCl 0.2 mg 0.2 mg Q2M PRN IV RR 8 BREATHS/MIN OR LESS; Start at 09:30 Potassium Chloride/Sodium Chloride (NS-KCl 20 Meq) 1,000 ml @ 100 mls/hr Q10H IV Last administered on 07/04/17 12:28; Admin Dose 100 MLS/HR; Start at 09:30 Hydromorphone HCl (Dilaudid) 0.5 mg Q4H PRN IV PAIN Last administered on 11:04; Admin Dose 0.5 MG; Start 06/30/17 at 09:30 Naloxone HCl (Narcan) 0.2 mg PRN PRN IV DECREASED REPIRATORY RATE; Start 06/30 at 12:00 Acetaminophen/ Hydrocodone Bitart ([place] (5/325)) 1 tab Q4H PRN PO PAIN LEVEL 1 -5 Last administered on 07/04/17 07:24; Admin Dose 1 TAB; Start 06/30/17 at 12:00; Status Future hold Acetaminophen/ Hydrocodone Bitart ([place] (5/325)) 2 tab Q4H PRN PO PAIN LEVEL 6 -10 Last administered on 07/04/17 12:27; Admin Dose 2 TAB; Start 06/30/17 at 12:00; Status Future hold Hydromorphone HCl (Dilaudid) 0.2 mg Q4H PRN IV PAIN LEVEL 1-5 Last administered on 07/03/17 19:34; Admin Dose 0.2 MG; Start 06/30/17 at 12:00 Hydromorphone HCl (Dilaudid) 0.4 mg Q4H PRN IV PAIN LEVEL 6-10; Start at 12:00 Ondansetron HCl (Zofran Inj) 4 mg Q6H PRN IV NAUSEA AND/OR VOMITING Last administered on 07/01/17 21:07; Admin Dose 4 MG; Start 06/30/17 at 12:00 Diphenhydramine HCl (Benadryl) 25 mg Q6H PRN IV ITCHING Last administered on 06:28; Admin Dose 25 MG; Start 06/30/17 at 12:00 Miscellaneous Information 1. Discontinue PARKING RAMP ATTENDANT... PARKING RAMP ATTENDANT IV ; Start 06/30/17 at 12: 00 Miscellaneous Information 1. Discontinue PARKING RAMP ATTENDANT... PARKING RAMP ATTENDANT IV ; Start 06/30/17 at 12: 00 Acetaminophen (Ofirmev 1000mg/ 100ml Iv) 100 ml @ 400 mls/hr Q6H PRN IVPB HEADACHE Last administered on 07/02/17 17:20; Admin Dose 400 MLS/HR; Start at 11:00 Magnesium Hydroxide 30 ml 30 ml DAILY PRN PO CONSTIPATION Last administered on 07/04/17 12:32; Admin Dose 30 ML; Start 07/02/17 at 11:00 Ceftriaxone Sodium (Rocephin) 50 ml @ 100 mls/hr Q24H IVPB Last administered on 07/04/17 11:05; Admin Dose 100 MLS/HR; Start 07/04/17 at 11:00 ISABELLA BRUSH Jul 04, 2017 13:59
--- NOTE | 2017-07-04 16:50 | PN ---
Date/Time of Note Date/Time of Note DATE: 07/04/17 TIME: 16:49 Assessment/Plan VTE Prophylaxis VTE Prophylaxis Intervention: SCD's Lines/Catheters IV Catheter Type (from Nrs): Peripheral IV Urinary Cath still in place: Yes Reason Cath still needed: other (indicate) Assessment/Plan Chief Complaint/Hosp Course OOB in am, PT/OT Problems: Subjective 24 Hr Interval Summary Free Text/Dictation without complaints, no CSF leakage Exam/Review of Systems Vital Signs Vitals Vital Signs Date Time Temp Pulse Resp B/P Pulse Ox O2 Delivery O2 Flow Rate FiO2 07/04/17 15:19 98.2 63 16 86/57 95 07/02/17 16:00 Nasal Cannula 2.0 07/02/17 05:33 27 Intake and Output 07/03/17 07/03/17 07/04/17 15:00 23:00 07:00 Intake Total 1000 ml 760 ml 950 ml Output Total 2200 ml 1255 ml Balance 1000 ml -1440 ml -305 ml Exam Motor and sensory exams unchanged Results Result Diagram: 07/04/17 0642 07/04/17 0638 Results 24 hrs Laboratory Tests Test 07/04/17 06:38 07/04/17 06:42 07/04/17 11:00 Sodium Level 142 Potassium Level 4.2 Chloride Level 109 Carbon Dioxide Level 27 Anion Gap 10 Blood Urea Nitrogen 8 Creatinine 0.56 Glucose Level 93 Calcium Level 8.2 L White Blood Count 7.5 Red Blood Count 4.41 Hemoglobin 14.3 Hematocrit 43.2 Mean Corpuscular Volume 98.0 Mean Corpuscular Hemoglobin 32.4 Mean Corpuscular Hemoglobin Concent 33.1 Red Cell Distribution Width 13.4 Platelet Count 285 Mean Platelet Volume 9.3 Neutrophils % 56.6 Lymphocytes % 31.1 Monocytes % 7.4 Eosinophils % 4.3 Basophils % 0.5 Nucleated Red Blood Cells % 0.0 Neutrophils # 4.2 Lymphocytes # 2.3 Monocytes # 0.6 Eosinophils # 0.3 Basophils # 0.0 Nucleated Red Blood Cells # 0.0 Urine Color STRAW Urine Clarity CLEAR Urine pH 8.0 Urine Specific [place] 1.008 Urine Ketones NEGATIVE Urine Nitrite NEGATIVE Urine Bilirubin NEGATIVE Urine Urobilinogen NEGATIVE Urine Leukocyte Esterase NEGATIVE Urine Microscopic RBC 1 Urine Microscopic WBC 1 Urine Yeast (Budding) FEW A Urine Hemoglobin 1+ H Urine Glucose NEGATIVE Urine Total Protein NEGATIVE Medications Medications Current Medications Naloxone HCl 0.2 mg 0.2 mg Q2M PRN IV RR 8 BREATHS/MIN OR LESS; Start at 09:30 Potassium Chloride/Sodium Chloride (NS-KCl 20 Meq) 1,000 ml @ 100 mls/hr Q10H IV Last administered on 07/04/17 12:28; Admin Dose 100 MLS/HR; Start at 09:30 Hydromorphone HCl (Dilaudid) 0.5 mg Q4H PRN IV PAIN Last administered on 11:04; Admin Dose 0.5 MG; Start 06/30/17 at 09:30 Naloxone HCl (Narcan) 0.2 mg PRN PRN IV DECREASED REPIRATORY RATE; Start 06/30 at 12:00 Acetaminophen/ Hydrocodone Bitart ([place] (5/325)) 1 tab Q4H PRN PO PAIN LEVEL 1 -5 Last administered on 07/04/17 07:24; Admin Dose 1 TAB; Start 06/30/17 at 12:00; Status Future hold Acetaminophen/ Hydrocodone Bitart ([place] (5/325)) 2 tab Q4H PRN PO PAIN LEVEL 6 -10 Last administered on 07/04/17 12:27; Admin Dose 2 TAB; Start 06/30/17 at 12:00; Status Future hold Hydromorphone HCl (Dilaudid) 0.2 mg Q4H PRN IV PAIN LEVEL 1-5 Last administered on 07/03/17 19:34; Admin Dose 0.2 MG; Start 06/30/17 at 12:00 Hydromorphone HCl (Dilaudid) 0.4 mg Q4H PRN IV PAIN LEVEL 6-10; Start at 12:00 Ondansetron HCl (Zofran Inj) 4 mg Q6H PRN IV NAUSEA AND/OR VOMITING Last administered on 07/01/17 21:07; Admin Dose 4 MG; Start 06/30/17 at 12:00 Diphenhydramine HCl (Benadryl) 25 mg Q6H PRN IV ITCHING Last administered on 06:28; Admin Dose 25 MG; Start 06/30/17 at 12:00 Miscellaneous Information 1. Discontinue CHECKROOM ATTENDANT... CHECKROOM ATTENDANT IV ; Start 06/30/17 at 12: 00 Miscellaneous Information 1. Discontinue CHECKROOM ATTENDANT... CHECKROOM ATTENDANT IV ; Start 06/30/17 at 12: 00 Acetaminophen (Ofirmev 1000mg/ 100ml Iv) 100 ml @ 400 mls/hr Q6H PRN IVPB HEADACHE Last administered on 07/02/17 17:20; Admin Dose 400 MLS/HR; Start at 11:00 Magnesium Hydroxide 30 ml 30 ml DAILY PRN PO CONSTIPATION Last administered on 07/04/17 12:32; Admin Dose 30 ML; Start 07/02/17 at 11:00 Ceftriaxone Sodium (Rocephin) 50 ml @ 100 mls/hr Q24H IVPB Last administered on 07/04/17 11:05; Admin Dose 100 MLS/HR; Start 07/04/17 at 11:00 ANDRA MORENO MD Jul 04, 2017 16:50
[2017-07-05] VITALS (13 sets, daily range): BP systolic 86–107; BP diastolic 50–63; PULSE 55–85; RESP 17–19
[2017-07-05] MEDS: HYDROCODONE/APAP (5/325) TAB PO PRN ×4 (02:52→21:58)
[2017-07-05 08:05] LABS: BASOPHILS % 0.3 % (0.0-2.0); EOSINOPHILS # 0.3 10^3/ul (0.0-0.5); EOSINOPHILS % 4.9 % (0.0-7.0); HEMATOCRIT 43.1 % (37.0-47.0); HEMOGLOBIN 14.2 g/dl (12.0-16.0); LYMPHOCYTES # 2.1 10^3/ul (0.8-2.9); LYMPHOCYTES % 32.4 % (15.0-51.0); MEAN CORPUSCULAR HEMOGLOBIN 32.5 pg (29.0-33.0); MEAN CORPUSCULAR HGB CONC 32.9 g/dl (32.0-37.0); MEAN CORPUSCULAR VOLUME 98.6 fl (82.0-101.0); MEAN PLATELET VOLUME 9.4 fl (7.4-10.4); MONOCYTE # 0.5 10^3/ul (0.3-0.9); MONOCYTES % 7.7 % (0.0-11.0); NEUTROPHIL # 3.5 10^3/ul (1.6-7.5); NEUTROPHILS % 54.4 % (39.0-77.0); PLATELET COUNT 298 10^3/UL (140-415); RED BLOOD COUNT 4.37 10^6/ul (4.20-5.40); RED CELL DISTRIBUTION WIDTH 13.4 % (11.5-14.5); WHITE BLOOD COUNT 6.5 10^3/ul (4.8-10.8)
[2017-07-05 08:22] LABS: CALCIUM 8.4 mg/dl (8.4-10.2); CREATININE 0.57 mg/dl (0.44-1.00); POTASSIUM 4.3 mmol/L (3.5-5.1)
[2017-07-05] MEDS: HYDROmorphONE 0.5 MG/0.5 ML SYG IV PRN ×3 (08:51→20:06)
[2017-07-05] MEDS: NS + KCL 20 MEQ 1,000 ML IV SCH ×2 (09:38→20:02)
[2017-07-05] MEDS: CEFTRIAXONE 1 GM/50 ML (PMX) 50 ML IVPB SCH (12:50)
--- NOTE | 2017-07-05 15:00 | PN ---
Date/Time of Note Date/Time of Note DATE: 07/05/17 TIME: 14:54 Assessment/Plan Lines/Catheters IV Catheter Type (from Nrsg): Peripheral IV Urinary Cath still in place: Yes Reason Cath still needed: urinary retention Assessment/Plan Assessment/Plan -Febrile condition- temp 99.6. 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 - per neurosx - Continue [place] and Dilaudid as needed for pain and Zofran p.r.n. for nausea. - Sinus Bradycardia, patient is asymptomatic - cont on tele - will get cardiology consult if patient is symptomatic Further recommendations based on clinical course. Plan of care discussed with Dr. Tabares. Exam/Review of Systems Vital Signs Vitals Vital Signs Date Time Temp Pulse Resp B/P Pulse Ox O2 Delivery O2 Flow Rate FiO2 07/05/17 12:07 61 07/05/17 11:58 99.6 17 106/60 97 07/02/17 16:00 Nasal Cannula 2.0 07/02/17 05:33 27 Intake and Output 07/04/17 07/04/17 07/05/17 14:59 22:59 06:59 Intake Total 950 ml 450 ml 2400 ml Output Total 1200 ml 2100 ml Balance 950 ml -750 ml 300 ml Results Result Diagram: 07/05/17 0733 07/05/17 0733 Results 24 hrs Laboratory Tests Test 07/05/17 07:33 White Blood Count 6.5 Red Blood Count 4.37 Hemoglobin 14.2 Hematocrit 43.1 Mean Corpuscular Volume 98.6 Mean Corpuscular Hemoglobin 32.5 Mean Corpuscular Hemoglobin Concent 32.9 Red Cell Distribution Width 13.4 Platelet Count 298 Mean Platelet Volume 9.4 Neutrophils % 54.4 Lymphocytes % 32.4 Monocytes % 7.7 Eosinophils % 4.9 Basophils % 0.3 Nucleated Red Blood Cells % 0.0 Neutrophils # 3.5 Lymphocytes # 2.1 Monocytes # 0.5 Eosinophils # 0.3 Basophils # 0.0 Nucleated Red Blood Cells # 0.0 Sodium Level 142 Potassium Level 4.3 Chloride Level 105 Carbon Dioxide Level 31 Anion Gap 10 Blood Urea Nitrogen 10 Creatinine 0.57 Glucose Level 86 Calcium Level 8.4 Medications Medications Current Medications Naloxone HCl 0.2 mg 0.2 mg Q2M PRN IV RR 8 BREATHS/MIN OR LESS; Start at 09:30 Potassium Chloride/Sodium Chloride (NS-KCl 20 Meq) 1,000 ml @ 100 mls/hr Q10H IV Last administered on 07/05/17 09:38; Admin Dose 100 MLS/HR; Start at 09:30 Hydromorphone HCl (Dilaudid) 0.5 mg Q4H PRN IV PAIN Last administered on 08:51; Admin Dose 0.5 MG; Start 06/30/17 at 09:30 Naloxone HCl (Narcan) 0.2 mg PRN PRN IV DECREASED REPIRATORY RATE; Start 06/30 at 12:00 Acetaminophen/ Hydrocodone Bitart ([place] (5/325)) 1 tab Q4H PRN PO PAIN LEVEL 1 -5 Last administered on 07/05/17 09:43; Admin Dose 1 TAB; Start 06/30/17 at 12:00; Status Future hold Acetaminophen/ Hydrocodone Bitart ([place] (5/325)) 2 tab Q4H PRN PO PAIN LEVEL 6 -10 Last administered on 07/05/17 02:52; Admin Dose 2 TAB; Start 06/30/17 at 12:00; Status Future hold Hydromorphone HCl (Dilaudid) 0.2 mg Q4H PRN IV PAIN LEVEL 1-5 Last administered on 07/03/17 19:34; Admin Dose 0.2 MG; Start 06/30/17 at 12:00 Hydromorphone HCl (Dilaudid) 0.4 mg Q4H PRN IV PAIN LEVEL 6-10 Last administered on 07/04/17 18:52; Admin Dose 0.4 MG; Start 06/30/17 at 12:00 Ondansetron HCl (Zofran Inj) 4 mg Q6H PRN IV NAUSEA AND/OR VOMITING Last administered on 07/01/17 21:07; Admin Dose 4 MG; Start 06/30/17 at 12:00 Diphenhydramine HCl (Benadryl) 25 mg Q6H PRN IV ITCHING Last administered on 06:28; Admin Dose 25 MG; Start 06/30/17 at 12:00 Miscellaneous Information 1. Discontinue TRACK REPAIRER HELPER... TRACK REPAIRER HELPER IV ; Start 06/30/17 at 12: 00 Miscellaneous Information 1. Discontinue TRACK REPAIRER HELPER... TRACK REPAIRER HELPER IV ; Start 06/30/17 at 12: 00 Acetaminophen (Ofirmev 1000mg/ 100ml Iv) 100 ml @ 400 mls/hr Q6H PRN IVPB HEADACHE Last administered on 07/02/17 17:20; Admin Dose 400 MLS/HR; Start at 11:00 Magnesium Hydroxide 30 ml 30 ml DAILY PRN PO CONSTIPATION Last administered on 07/04/17 12:32; Admin Dose 30 ML; Start 07/02/17 at 11:00 Ceftriaxone Sodium (Rocephin) 50 ml @ 100 mls/hr Q24H IVPB Last administered on 07/05/17 12:50; Admin Dose 100 MLS/HR; Start 07/04/17 at 11:00 ISABELLA BRUSH Jul 05, 2017 15:00
[2017-07-06] VITALS (12 sets, daily range): BP systolic 92–101; BP diastolic 52–60; PULSE 63–90; RESP 17–20
[2017-07-06] MEDS: HYDROmorphONE 0.5 MG/0.5 ML SYG IV PRN ×7 (00:12→21:58)
[2017-07-06] MEDS: NS + KCL 20 MEQ 1,000 ML IV SCH ×2 (05:38→18:13)
[2017-07-06 06:39] LABS: BASOPHILS % 0.5 % (0.0-2.0); EOSINOPHILS # 0.4 10^3/ul (0.0-0.5); EOSINOPHILS % 4.9 % (0.0-7.0); HEMATOCRIT 47.5 % (37.0-47.0); HEMOGLOBIN 15.7 g/dl (12.0-16.0); LYMPHOCYTES # 2.3 10^3/ul (0.8-2.9); LYMPHOCYTES % 31.8 % (15.0-51.0); MEAN CORPUSCULAR HEMOGLOBIN 32.4 pg (29.0-33.0); MEAN CORPUSCULAR HGB CONC 33.1 g/dl (32.0-37.0); MEAN CORPUSCULAR VOLUME 98.1 fl (82.0-101.0); MEAN PLATELET VOLUME 9.2 fl (7.4-10.4); MONOCYTE # 0.5 10^3/ul (0.3-0.9); MONOCYTES % 6.3 % (0.0-11.0); NEUTROPHIL # 4.1 10^3/ul (1.6-7.5); NEUTROPHILS % 56.1 % (39.0-77.0); PLATELET COUNT 332 10^3/UL (140-415); RED BLOOD COUNT 4.84 10^6/ul (4.20-5.40); RED CELL DISTRIBUTION WIDTH 13.5 % (11.5-14.5); WHITE BLOOD COUNT 7.3 10^3/ul (4.8-10.8)
[2017-07-06 07:03] LABS: CALCIUM 8.9 mg/dl (8.4-10.2); CREATININE 0.63 mg/dl (0.44-1.00); POTASSIUM 4.5 mmol/L (3.5-5.1)
[2017-07-06] MEDS: CEFTRIAXONE 1 GM/50 ML (PMX) 50 ML IVPB SCH (11:50)
[2017-07-06] MEDS: HYDROCODONE/APAP (5/325) TAB PO PRN (11:56)
--- NOTE | 2017-07-06 13:45 | PN ---
Date/Time of Note Date/Time of Note DATE: 07/06/17 TIME: 13:43 Assessment/Plan VTE Prophylaxis VTE Prophylaxis Intervention: SCD's Lines/Catheters IV Catheter Type (from Nrsg): Peripheral IV Urinary Cath still in place: Yes Reason Cath still needed: urinary retention Assessment/Plan Chief Complaint/Hosp Course Pt complains of headache, lower back pain is well controlled. 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 Continue ICU monitoring with neuro checks. Continue postoperative antibiotics and IV fluids. Continue [place] and Dilaudid as needed for pain and Zofran p.r.n. for nausea. Further recommendations based on clinical course. Plan of care discussed with Dr. Tabares. 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 II-XII intact Results Result Diagram: 07/06/17 0558 07/06/17 0558 Results 24 hrs Laboratory Tests Test 07/06/17 05:58 White Blood Count 7.3 Red Blood Count 4.84 Hemoglobin 15.7 Hematocrit 47.5 H Mean Corpuscular Volume 98.1 Mean Corpuscular Hemoglobin 32.4 Mean Corpuscular Hemoglobin Concent 33.1 Red Cell Distribution Width 13.5 Platelet Count 332 Mean Platelet Volume 9.2 Neutrophils % 56.1 Lymphocytes % 31.8 Monocytes % 6.3 Eosinophils % 4.9 Basophils % 0.5 Nucleated Red Blood Cells % 0.0 Neutrophils # 4.1 Lymphocytes # 2.3 Monocytes # 0.5 Eosinophils # 0.4 Basophils # 0.0 Nucleated Red Blood Cells # 0.0 Sodium Level 142 Potassium Level 4.5 Chloride Level 103 Carbon Dioxide Level 30 Anion Gap 14 Blood Urea Nitrogen 10 Creatinine 0.63 Glucose Level 100 Calcium Level 8.9 Medications Medications Current Medications Naloxone HCl 0.2 mg 0.2 mg Q2M PRN IV RR 8 BREATHS/MIN OR LESS; Start at 09:30 Potassium Chloride/Sodium Chloride (NS-KCl 20 Meq) 1,000 ml @ 100 mls/hr Q10H IV Last administered on 07/06/17 05:38; Admin Dose 100 MLS/HR; Start at 09:30 Hydromorphone HCl (Dilaudid) 0.5 mg Q4H PRN IV PAIN Last administered on 09:51; Admin Dose 0.5 MG; Start 06/30/17 at 09:30 Naloxone HCl (Narcan) 0.2 mg PRN PRN IV DECREASED REPIRATORY RATE; Start 06/30 at 12:00 Acetaminophen/ Hydrocodone Bitart ([place] (5/325)) 1 tab Q4H PRN PO PAIN LEVEL 1 -5 Last administered on 07/05/17 16:22; Admin Dose 1 TAB; Start 06/30/17 at 12:00; Status Future hold Acetaminophen/ Hydrocodone Bitart ([place] (5/325)) 2 tab Q4H PRN PO PAIN LEVEL 6 -10 Last administered on 07/06/17 11:56; Admin Dose 2 TAB; Start 06/30/17 at 12:00; Status Future hold Hydromorphone HCl (Dilaudid) 0.2 mg Q4H PRN IV PAIN LEVEL 1-5 Last administered on 07/03/17 19:34; Admin Dose 0.2 MG; Start 06/30/17 at 12:00 Hydromorphone HCl (Dilaudid) 0.4 mg Q4H PRN IV PAIN LEVEL 6-10 Last administered on 07/04/17 18:52; Admin Dose 0.4 MG; Start 06/30/17 at 12:00 Ondansetron HCl (Zofran Inj) 4 mg Q6H PRN IV NAUSEA AND/OR VOMITING Last administered on 07/01/17 21:07; Admin Dose 4 MG; Start 06/30/17 at 12:00 Diphenhydramine HCl (Benadryl) 25 mg Q6H PRN IV ITCHING Last administered on 06:28; Admin Dose 25 MG; Start 06/30/17 at 12:00 Miscellaneous Information 1. Discontinue NEWS VIDEO EDITOR... NEWS VIDEO EDITOR IV ; Start 06/30/17 at 12: 00 Miscellaneous Information 1. Discontinue NEWS VIDEO EDITOR... NEWS VIDEO EDITOR IV ; Start 06/30/17 at 12: 00 Acetaminophen (Ofirmev 1000mg/ 100ml Iv) 100 ml @ 400 mls/hr Q6H PRN IVPB HEADACHE Last administered on 07/02/17 17:20; Admin Dose 400 MLS/HR; Start at 11:00 Magnesium Hydroxide 30 ml 30 ml DAILY PRN PO CONSTIPATION Last administered on 07/04/17 12:32; Admin Dose 30 ML; Start 07/02/17 at 11:00 Ceftriaxone Sodium (Rocephin) 50 ml @ 100 mls/hr Q24H IVPB Last administered on 07/06/17 11:50; Admin Dose 100 MLS/HR; Start 07/04/17 at 11:00 LACY KHAN Jul 06, 2017 13:45
--- NOTE | 2017-07-06 13:47 | PN ---
Date/Time of Note Date/Time of Note DATE: 07/06/17 TIME: 13:40 Assessment/Plan VTE Prophylaxis VTE Prophylaxis Intervention: ambulation, SCD's Lines/Catheters IV Catheter Type (from Nrsg): [place] Urinary Cath still in place: No Assessment/Plan Assessment/Plan s/p Meningocele repair surgical site cdi doing well with pt/ot , currently ambulating Plan cont pt/ot with brace okay to dc home from NS point of view in am if stable prescriptions written and in chart. follow up in 2 weeks okay to shower when pt goes home Subjective 24 Hr Interval Summary Subjective hx not possible: other (S: ambulating with pt/ot . Surgical site remains dry and PINO improving) Exam/Review of Systems Vital Signs Vitals Vital Signs Date Time Temp Pulse Resp B/P Pulse Ox O2 Delivery O2 Flow Rate FiO2 07/06/17 12:40 73 07/06/17 11:16 98.7 19 99/57 96 07/02/17 16:00 Nasal Cannula 2.0 Intake and Output 07/05/17 07/05/17 07/06/17 15:00 23:00 07:00 Intake Total 850 ml 2100 ml Output Total 1600 ml 1900 ml Balance -750 ml 200 ml Exam Neurological: other (MS: AAOX4 CN: PERRL M: fC x 4 , 5/5 strength ) Results Result Diagram: 07/06/17 0558 07/06/17 0558 Results 24 hrs Laboratory Tests Test 07/06/17 05:58 White Blood Count 7.3 Red Blood Count 4.84 Hemoglobin 15.7 Hematocrit 47.5 H Mean Corpuscular Volume 98.1 Mean Corpuscular Hemoglobin 32.4 Mean Corpuscular Hemoglobin Concent 33.1 Red Cell Distribution Width 13.5 Platelet Count 332 Mean Platelet Volume 9.2 Neutrophils % 56.1 Lymphocytes % 31.8 Monocytes % 6.3 Eosinophils % 4.9 Basophils % 0.5 Nucleated Red Blood Cells % 0.0 Neutrophils # 4.1 Lymphocytes # 2.3 Monocytes # 0.5 Eosinophils # 0.4 Basophils # 0.0 Nucleated Red Blood Cells # 0.0 Sodium Level 142 Potassium Level 4.5 Chloride Level 103 Carbon Dioxide Level 30 Anion Gap 14 Blood Urea Nitrogen 10 Creatinine 0.63 Glucose Level 100 Calcium Level 8.9 Medications Medications Current Medications Naloxone HCl 0.2 mg 0.2 mg Q2M PRN IV RR 8 BREATHS/MIN OR LESS; Start at 09:30 Potassium Chloride/Sodium Chloride (NS-KCl 20 Meq) 1,000 ml @ 100 mls/hr Q10H IV Last administered on 07/06/17 05:38; Admin Dose 100 MLS/HR; Start at 09:30 Hydromorphone HCl (Dilaudid) 0.5 mg Q4H PRN IV PAIN Last administered on 09:51; Admin Dose 0.5 MG; Start 06/30/17 at 09:30 Naloxone HCl (Narcan) 0.2 mg PRN PRN IV DECREASED REPIRATORY RATE; Start 06/30 at 12:00 Acetaminophen/ Hydrocodone Bitart ([place] (5/325)) 1 tab Q4H PRN PO PAIN LEVEL 1 -5 Last administered on 07/05/17 16:22; Admin Dose 1 TAB; Start 06/30/17 at 12:00; Status Future hold Acetaminophen/ Hydrocodone Bitart ([place] (5/325)) 2 tab Q4H PRN PO PAIN LEVEL 6 -10 Last administered on 07/06/17 11:56; Admin Dose 2 TAB; Start 06/30/17 at 12:00; Status Future hold Hydromorphone HCl (Dilaudid) 0.2 mg Q4H PRN IV PAIN LEVEL 1-5 Last administered on 07/03/17 19:34; Admin Dose 0.2 MG; Start 06/30/17 at 12:00 Hydromorphone HCl (Dilaudid) 0.4 mg Q4H PRN IV PAIN LEVEL 6-10 Last administered on 07/04/17 18:52; Admin Dose 0.4 MG; Start 06/30/17 at 12:00 Ondansetron HCl (Zofran Inj) 4 mg Q6H PRN IV NAUSEA AND/OR VOMITING Last administered on 07/01/17 21:07; Admin Dose 4 MG; Start 06/30/17 at 12:00 Diphenhydramine HCl (Benadryl) 25 mg Q6H PRN IV ITCHING Last administered on 06:28; Admin Dose 25 MG; Start 06/30/17 at 12:00 Miscellaneous Information 1. Discontinue WAREHOUSE ORDER SELECTOR... WAREHOUSE ORDER SELECTOR IV ; Start 06/30/17 at 12: 00 Miscellaneous Information 1. Discontinue WAREHOUSE ORDER SELECTOR... WAREHOUSE ORDER SELECTOR IV ; Start 06/30/17 at 12: 00 Acetaminophen (Ofirmev 1000mg/ 100ml Iv) 100 ml @ 400 mls/hr Q6H PRN IVPB HEADACHE Last administered on 07/02/17 17:20; Admin Dose 400 MLS/HR; Start at 11:00 Magnesium Hydroxide 30 ml 30 ml DAILY PRN PO CONSTIPATION Last administered on 07/04/17 12:32; Admin Dose 30 ML; Start 07/02/17 at 11:00 Ceftriaxone Sodium (Rocephin) 50 ml @ 100 mls/hr Q24H IVPB Last administered on 07/06/17 11:50; Admin Dose 100 MLS/HR; Start 07/04/17 at 11:00 LINA MÉNDEZ NP Jul 06, 2017 13:47
[2017-07-07] VITALS (10 sets, daily range): BP systolic 91–113; BP diastolic 53–65; PULSE 69–85; RESP 16–19
[2017-07-07] MEDS: NS + KCL 20 MEQ 1,000 ML IV SCH ×3 (01:31→20:15)
[2017-07-07] MEDS: HYDROmorphONE 0.5 MG/0.5 ML SYG IV PRN ×4 (03:47→20:15)
[2017-07-07 07:57] LABS: BASOPHIL # 0.1 10^3/ul (0.0-0.1); BASOPHILS % 0.6 % (0.0-2.0); EOSINOPHILS # 0.4 10^3/ul (0.0-0.5); EOSINOPHILS % 4.9 % (0.0-7.0); HEMATOCRIT 48.6 % (37.0-47.0); HEMOGLOBIN 15.8 g/dl (12.0-16.0); LYMPHOCYTES # 2.7 10^3/ul (0.8-2.9); LYMPHOCYTES % 31.7 % (15.0-51.0); MEAN CORPUSCULAR HEMOGLOBIN 31.3 pg (29.0-33.0); MEAN CORPUSCULAR HGB CONC 32.5 g/dl (32.0-37.0); MEAN CORPUSCULAR VOLUME 96.4 fl (82.0-101.0); MEAN PLATELET VOLUME 9.1 fl (7.4-10.4); MONOCYTE # 0.7 10^3/ul (0.3-0.9); MONOCYTES % 8.5 % (0.0-11.0); NEUTROPHIL # 4.6 10^3/ul (1.6-7.5); NEUTROPHILS % 54.1 % (39.0-77.0); PLATELET COUNT 337 10^3/UL (140-415); RED BLOOD COUNT 5.04 10^6/ul (4.20-5.40); RED CELL DISTRIBUTION WIDTH 13.8 % (11.5-14.5); WHITE BLOOD COUNT 8.6 10^3/ul (4.8-10.8)
[2017-07-07 08:19] LABS: CALCIUM 8.8 mg/dl (8.4-10.2); CREATININE 0.55 mg/dl (0.44-1.00); POTASSIUM 4.2 mmol/L (3.5-5.1)
[2017-07-07] MEDS: HYDROCODONE/APAP (5/325) TAB PO PRN ×2 (12:07→22:45)
[2017-07-07] MEDS: CEFTRIAXONE 1 GM/50 ML (PMX) 50 ML IVPB SCH (12:13)
--- NOTE | 2017-07-07 15:06 | PN ---
Date/Time of Note Date/Time of Note DATE: 07/07/17 TIME: 14:59 Assessment/Plan VTE Prophylaxis VTE Prophylaxis Intervention: SCD's Lines/Catheters IV Catheter Type (from Nrs): Peripheral IV Urinary Cath still in place: No Assessment/Plan Chief Complaint/Hosp Course Patient stated improvement with headache and surgical site pain, however, she remains hypotensive, will continue to get out of bed with PT, monitor patient's blood pressure for next 24 hours. 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 Continue postoperative antibiotics and IV fluids. Continue [place] and Dilaudid as needed for pain and Zofran p.r.n. for nausea. Further recommendations based on clinical course. Plan of care discussed with Dr. Tabares. Problems: Exam/Review of Systems Vital Signs Vitals Vital Signs Date Time Temp Pulse Resp B/P Pulse Ox O2 Delivery O2 Flow Rate FiO2 07/07/17 12:35 69 07/07/17 11:15 98.1 91/56 93 07/07/17 08:15 18 Intake and Output 07/06/17 07/06/17 07/07/17 15:00 23:00 07:00 Intake Total 2180 ml 600 ml Output Total 2800 ml 750 ml Balance -620 ml -150 ml Exam Constitutional: alert Neck: supple Respiratory: normal air movement Cardiovascular: nl pulses Gastrointestinal: non-tender, soft Musculoskeletal: other (s/p back surgery) Extremities: normal pulses Neurological: BACK SEWER II-XII intact Results Result Diagram: 07/07/17 0734 07/07/17 0734 Results 24 hrs Laboratory Tests Test 07/07/17 07:34 White Blood Count 8.6 Red Blood Count 5.04 Hemoglobin 15.8 Hematocrit 48.6 H Mean Corpuscular Volume 96.4 Mean Corpuscular Hemoglobin 31.3 Mean Corpuscular Hemoglobin Concent 32.5 Red Cell Distribution Width 13.8 Platelet Count 337 Mean Platelet Volume 9.1 Neutrophils % 54.1 Lymphocytes % 31.7 Monocytes % 8.5 Eosinophils % 4.9 Basophils % 0.6 Nucleated Red Blood Cells % 0.0 Neutrophils # 4.6 Lymphocytes # 2.7 Monocytes # 0.7 Eosinophils # 0.4 Basophils # 0.1 Nucleated Red Blood Cells # 0.0 Sodium Level 142 Potassium Level 4.2 Chloride Level 105 Carbon Dioxide Level 25 Anion Gap 16 Blood Urea Nitrogen 11 Creatinine 0.55 Glucose Level 93 Calcium Level 8.8 Medications Medications Current Medications Naloxone HCl 0.2 mg 0.2 mg Q2M PRN IV RR 8 BREATHS/MIN OR LESS; Start at 09:30 Potassium Chloride/Sodium Chloride (NS-KCl 20 Meq) 1,000 ml @ 100 mls/hr Q10H IV Last administered on 07/07/17 12:12; Admin Dose 100 MLS/HR; Start at 09:30 Hydromorphone HCl (Dilaudid) 0.5 mg Q4H PRN IV PAIN Last administered on 09:23; Admin Dose 0.5 MG; Start 06/30/17 at 09:30 Naloxone HCl (Narcan) 0.2 mg PRN PRN IV DECREASED REPIRATORY RATE; Start 06/30 at 12:00 Acetaminophen/ Hydrocodone Bitart ([place] (5/325)) 1 tab Q4H PRN PO PAIN LEVEL 1 -5 Last administered on 07/05/17 16:22; Admin Dose 1 TAB; Start 06/30/17 at 12:00; Status Future hold Acetaminophen/ Hydrocodone Bitart ([place] (5/325)) 2 tab Q4H PRN PO PAIN LEVEL 6 -10 Last administered on 07/07/17 12:07; Admin Dose 2 TAB; Start 06/30/17 at 12:00; Status Future hold Hydromorphone HCl (Dilaudid) 0.2 mg Q4H PRN IV PAIN LEVEL 1-5 Last administered on 07/03/17 19:34; Admin Dose 0.2 MG; Start 06/30/17 at 12:00 Hydromorphone HCl (Dilaudid) 0.4 mg Q4H PRN IV PAIN LEVEL 6-10 Last administered on 07/04/17 18:52; Admin Dose 0.4 MG; Start 06/30/17 at 12:00 Ondansetron HCl (Zofran Inj) 4 mg Q6H PRN IV NAUSEA AND/OR VOMITING Last administered on 07/01/17 21:07; Admin Dose 4 MG; Start 06/30/17 at 12:00 Diphenhydramine HCl (Benadryl) 25 mg Q6H PRN IV ITCHING Last administered on 06:28; Admin Dose 25 MG; Start 06/30/17 at 12:00 Miscellaneous Information 1. Discontinue SHEET ROCK APPLIER... SHEET ROCK APPLIER IV ; Start 06/30/17 at 12: 00 Miscellaneous Information 1. Discontinue SHEET ROCK APPLIER... SHEET ROCK APPLIER IV ; Start 06/30/17 at 12: 00 Acetaminophen (Ofirmev 1000mg/ 100ml Iv) 100 ml @ 400 mls/hr Q6H PRN IVPB HEADACHE Last administered on 07/02/17 17:20; Admin Dose 400 MLS/HR; Start at 11:00 Magnesium Hydroxide 30 ml 30 ml DAILY PRN PO CONSTIPATION Last administered on 07/04/17 12:32; Admin Dose 30 ML; Start 07/02/17 at 11:00 Ceftriaxone Sodium (Rocephin) 50 ml @ 100 mls/hr Q24H IVPB Last administered on 07/07/17 12:13; Admin Dose 100 MLS/HR; Start 07/04/17 at 11:00 LACY KHAN Jul 07, 2017 15:06
[2017-07-07] MEDS ORDERED: DIPHENHYDRAMINE 2%/ZINC 28.4 GM CR TOP PRN (16:30)
[2017-07-07] MEDS: BACITRACIN 0.5%/ZINC 28.35 GM OINT TOP SCH (20:15)
[2017-07-08] VITALS (12 sets, daily range): BP systolic 98–120; BP diastolic 58–64; PULSE 63–90; RESP 15–20
[2017-07-08] MEDS: HYDROmorphONE 0.5 MG/0.5 ML SYG IV PRN ×6 (01:12→23:12)
[2017-07-08] MEDS: NS + KCL 20 MEQ 1,000 ML IV SCH ×2 (08:02→17:30)
[2017-07-08 08:32] LABS: BASOPHILS % 0.4 % (0.0-2.0); EOSINOPHILS # 0.4 10^3/ul (0.0-0.5); EOSINOPHILS % 6.2 % (0.0-7.0); HEMOGLOBIN 15.4 g/dl (12.0-16.0); LYMPHOCYTES # 2.1 10^3/ul (0.8-2.9); LYMPHOCYTES % 31.5 % (15.0-51.0); MEAN CORPUSCULAR HGB CONC 32.8 g/dl (32.0-37.0); MEAN CORPUSCULAR VOLUME 97.7 fl (82.0-101.0); MEAN PLATELET VOLUME 9.1 fl (7.4-10.4); MONOCYTE # 0.7 10^3/ul (0.3-0.9); MONOCYTES % 9.7 % (0.0-11.0); NEUTROPHIL # 3.5 10^3/ul (1.6-7.5); NEUTROPHILS % 51.6 % (39.0-77.0); PLATELET COUNT 284 10^3/UL (140-415); RED BLOOD COUNT 4.81 10^6/ul (4.20-5.40); RED CELL DISTRIBUTION WIDTH 13.5 % (11.5-14.5); WHITE BLOOD COUNT 6.8 10^3/ul (4.8-10.8)
[2017-07-08 09:07] LABS: CALCIUM 8.9 mg/dl (8.4-10.2); CREATININE 0.52 mg/dl (0.44-1.00); POTASSIUM 4.2 mmol/L (3.5-5.1)
[2017-07-08] MEDS: BACITRACIN 0.5%/ZINC 28.35 GM OINT TOP SCH ×2 (09:18→20:05)
[2017-07-08] MEDS: CEFTRIAXONE 1 GM/50 ML (PMX) 50 ML IVPB SCH (11:21)
[2017-07-08] MEDS ORDERED: HYDR-3498 PO (11:56)
[2017-07-08] MEDS ORDERED: DOCU-144 PO (11:57)
--- NOTE | 2017-07-08 16:51 | RADRPT ---
PROCEDURE: Portable chest x-ray. CLINICAL INDICATION: Cough. TECHNIQUE: Portable AP view of the chest. COMPARISON: 06/30/2017. FINDINGS: There is mild elevation of the hemidiaphragm, unchanged. No pulmonary edema or conolidation is ident ified. The cardiac silhouette is magnified. No pleural effusion is seen. There is no pneumothorax . IMPRESSION: 1. No evidence of acute cardiopulmonary disease. RPTAT: HTAR .Fredy Rhodes MD, MD Date Time Electronically viewed and signed by .Fredy Rhodes MD, on 07/08/2017 16:51 .R/
[2017-07-08] MEDS: HYDROCODONE/APAP (5/325) TAB PO PRN (19:56)
[2017-07-09] VITALS: PULSE 91
[2017-07-09] MEDS: NS + KCL 20 MEQ 1,000 ML IV SCH ×3 (03:30→20:08)
[2017-07-09] MEDS: HYDROmorphONE 0.5 MG/0.5 ML SYG IV PRN ×4 (05:01→20:14)
[2017-07-09 05:30] VITALS: BP 98/59; RESP 20
[2017-07-09 08:00] VITALS: BP 100/66; RESP 18
[2017-07-09] MEDS: BACITRACIN 0.5%/ZINC 28.35 GM OINT TOP SCH ×2 (10:54→20:10)
[2017-07-09] MEDS: CEFTRIAXONE 1 GM/50 ML (PMX) 50 ML IVPB SCH (10:55)
[2017-07-09 13:50] VITALS: BP 105/56; RESP 17
[2017-07-09] MEDS: HYDROCODONE/APAP (5/325) TAB PO PRN (16:40)
--- NOTE | 2017-07-09 19:17 | PDOCDIS ---
Discharge Instructions HOME CARE INSTRUCTIONS: Diet Instructions: RegularSpecial Diet: regular ACTIVITY: Activity Restrictions: Slowly Increase Activity Bathing Restrictions: keep incision site dry and cleanActivity Restrictions Comment: no heavy lifting,no bending,no twisting ISABELLA BRUSH Jul 09, 2017 19:16
[2017-07-09 20:18] VITALS: BP 102/58; RESP 16
[2017-07-10] MEDS: HYDROmorphONE 0.5 MG/0.5 ML SYG IV PRN ×2 (00:33→04:51)
[2017-07-10 02:19] VITALS: BP 100/59; RESP 16
--- NOTE | 2017-07-12 21:33 | DS ---
Date/Time of Note Date/Time of Note DATE: 07/12/17 TIME: 21:29 Discharge Summary Admission/Discharge Info Admit Date/Time Jun 30, 2017 at 05:47 Discharge Date/Time Jul 10, 2017 at 06:45 Patient Condition: Stable Hx of Present Illness The patient is a 46-year-old female who was evaluated by Dr. Kohler in surgical consultation for pseudomeningocele. Patient with complaints of increasing back pain and headache. The patient was admitted and underwent L4-S1 right pseudomeningocele repair. Postoperatively, the patient experienced moderate pain and patient is admitted to the intensive care unit for further management. The patient denies any chest pain, denies any shortness of breath. Complains of mild headache, back pain and itching. Denies fever or chills. Hospital Course - Pseudomeningocele, status post L4-S1 right pseudomeningocele repair. Continue postoperative antibiotics and IV fluids. Continue [place] and Dilaudid as needed for pain and Zofran p.r.n. for nausea. Patient was on complete bedrest for 48 hrs. Pt gradually increased activity with PT. Home Meds Active Scripts Docusate Sodium* (Colace*) 100 Mg Capsule, 100 MG PO BID, #60 CAP Prov:LACY KHAN 07/08/17 Hydrocodone Bit-Acetaminophen (Hydrocodone Bit-APAP) 5-325MG Tablet, 1 TAB PO Q4H Y for PAIN LEVEL 1-5, #30 TAB Prov:LACY KHAN 07/08/17 Discontinued Reported Medications Ibuprofen (Advil) 100 Mg Tab.chew 10/31/10 Follow-up Plan cont pt/ot with brace follow up with Dr Kohler in 2 weeks okay to shower when pt goes home f/up with PMD for possible sleep apnea study Primary Care Provider Not On Staff Doctor Time spent on discharge: > 30 minutes LACY KHAN Jul 12, 2017 21:32
== END 2017-07-10 06:45 | disposition home or self-care (01) | DRG 29 ==
LOC: REC 05:47 → ICU 11:53 → TEL 07-02 16:03 → PP2 07-09 05:15
PROVIDERS: ADMIT Neurological Surgery; ATTEND Internal Medicine
PROC: 00QT0ZZ Repair Spinal Meninges, Open Approach (ICD-10-PCS; principal; 2017-06-30 07:30)
DX: G97.82 Other postprocedural complications and disorders of nervous system (principal); N39.0 Urinary tract infection, site not specified; G96.19 Other disorders of meninges, not elsewhere classified; R00.1 Bradycardia, unspecified; Y83.8 Other surgical procedures as the cause of abnormal reaction of the patient, or of later complication, without mention of misadventure at the time of the procedure; Y92.89 Other specified places as the place of occurrence of the external cause
CPT/HCPCS: 71010; 80048; 80053; 81001; 85025; 85610; 85730; 86850; 86900; 86901; 87040; 87070; 87081; 87086; 93005; 97116; 97163; 97530; J0131; J0690; J0696; J1100; J1170; J1200; J1885; J2175; J2250; J2405; J3010; J3480; L0639

== ENCOUNTER 2017-07-23 14:58 | Emergency (ER) | END 2017-07-23 20:26 | disposition home or self-care (01) | DX: R06.02 Shortness of breath (principal); R07.9 Chest pain, unspecified; R42 Dizziness and giddiness | CPT/HCPCS: 36415; 71275; 80048; 81003; 84484; 85025; 93005; 96374; 96375; 99285; J1200; J1885; J2270; J2765; J7030; Q9967 ==